=== PATIENT | male | born 1960 | race Caucasian/White ===

== ENCOUNTER 2016-10-21 23:19 | Inpatient (IN) ==
[2016-10-21 23:40] LABS: MANUAL DIFF NEEDED? NO
[2016-10-21 23:43] LABS: BASO% 2.1 % (0.0-0.8); HEMATOCRIT 30.4 % (42.0-52.0); HEMOGLOBIN 10.2 g/dL (14.0-18.0); IMM GRAN# 0.02 X1000 (0.0-0.04); IMM GRAN% 0.8 % (0.0-0.5); LYMPH# 0.95 X1000 (1.2-3.4); LYMPH% 39.3 % (20.5-51.1); MCH 28.7 PG (27-31); MCHC 33.6 g/dL (33-37); MCV 85.4 FL (81-99); MONO# 0.29 X1000 (0.11-0.59); MPV 10.7 FL (7.4-10.4); NEUT% 45.8 % (42.2-75.2); PLT 83 X1000 (130-400); RBC 3.56 XMIL (4.7-6.1)
[2016-10-21 23:51] LABS: INR 1.15; PROTIME 12.2 Seconds (9.2-11.7); PTT 35.7 Seconds (22.0-36.0)
[2016-10-22 00:06] LABS: ALLEN TEST YES; BE 4.8 mmoll (-3.0-3.0); BLOOD TYPE ARTERIAL; DRAW SITE R RADIAL; METHB 0.3 % (0.0-1.5); O2(CT) 13.5 mL/dL (15.0-23.0); PCO2(98.6) 22 mmHg (35-45); PO2(98.6) 156 mmHg (60-100); SAMPLE BLOOD; SAO2 99.5 % (95.0-100.0); THB 9.6 g/dL (11.5-17.4)
[2016-10-22 00:08] LABS: MODALITY CANNULA; pH(98.6) 7.66 (7.35-7.45)
[2016-10-22 00:12] LABS: AGAP 21; ALBUMIN 2.7 g/dL (3.5-5.0); ALKALINE PHOSPHATASE 218 U/L (32-122); BUN 19 mg/dL (8-22); CALCIUM 7.8 mg/dL (8.8-10.2); CHLORIDE 83 mmol/L (98-107); COSMO 268; GOT 153 U/L (10-34); GPT 83 U/L (10-44); POTASSIUM 4.1 mmol/L (3.5-5.1); SODIUM 128 mmol/L (136-145); TCO2 24 mmol/L (25-35); TOTAL BILIRUBIN 1.17 mg/dL (0.20-1.00); TOTAL PROTEIN 5.8 g/dL (6.3-8.3)
[2016-10-22] MEDS ORDERED: NS 1,000 ML IV ONE ×2 (00:17→03:23)
[2016-10-22] MEDS ORDERED: LR 1,000 ML IV ONE ×2 (00:19→00:28)
[2016-10-22] MEDS ORDERED: LEVAQUIN 750 MG/D5W 750 MG/150 ML IVPB IV ONE (00:21)
[2016-10-22] MEDS ORDERED: ZOSYN 3.375 GM/NS 3.375 GM/50 ML IVPB IV ONE (00:22)
[2016-10-22] MEDS ORDERED: VANCOMYCIN 1 GM/NS 1 GM/250 ML IVPB IV ONE (00:23)
[2016-10-22] MEDS ORDERED: LR 2,500 ML IV ONE (00:28)
[2016-10-22 00:52] LABS: CK PROFILE 100 U/L (24-204)
[2016-10-22 01:17] LABS: URINE CULTURE NEEDED? NO; URINE SOURCE CLEAN CATCH
[2016-10-22 01:21] LABS: BILIRUBIN URINE SMALL (NEGATIVE); BLOOD URINE MODERATE (NEGATIVE); COLOR YELLOW; GLUCOSE URINE NEGATIVE (NEGATIVE); LEUKOCYTES URINE NEGATIVE (NEGATIVE); NITRITE URINE NEGATIVE (NEGATIVE); PROTEIN URINE 200 mg/dL (NEGATIVE); TURBIDITY URINE CLEAR (CLEAR); UROBILINOGEN URINE 4 mg/dL (NORMAL)
[2016-10-22 01:25] LABS: UR EPITHELIAL CELLS <10 /HPF (<10); URINE BACTERIA NEGATIVE /HPF; URINE MICRO REVIEW NEEDED? YES; URINE RBC 20-40 /HPF (<10); URINE WBC <10 /HPF (<10)
[2016-10-22 01:33] LABS: URINE CASTS GRANULAR PRESENT
--- NOTE | 2016-10-22 01:33 | PROVIDER DOCUMENTATION ---
This chart was entered by Reta Bentley Scribe, acting as scribe for Azael Amaya MD. HPI-General Adult - General Chief Complaint: Altered Mental Status Stated Complaint: AMS Time Seen by Provider: 10/21/16 23:23 Source: family, EMS Allergies/Adverse Reactions: Patient Allergies Allergy/AdvReac Type Severity Reaction Status Date / Time No Known Allergies Allergy Verified 10/21/16 23:31 Home Medications: Home Medication List Medication Instructions Recorded Confirmed Last Taken Type Baclofen 10 mg PO TID 11/29/13 10/21/16 03/09/16 14:00 History Omeprazole [Prilosec] 40 mg PO DAILY 03/09/16 10/21/16 03/09/16 09:00 History Gabapentin 100 - 200 mg PO QAM 10/21/16 10/21/16 Unknown History Gabapentin 400 mg PO HS 10/21/16 10/21/16 Unknown History Ibuprofen 600 mg PO TID 10/21/16 10/21/16 Unknown History Trazodone [Desyrel] 100 mg PO QHS 10/21/16 10/21/16 Unknown History - History of Present Illness -Gen Adult Nature of Presenting Problems: 56 Y/O M presents to ED with AMS. Pt was brought in by EMS, states that pt was last seen normal around 4pm when she got home from work and has been going down hill since then. EMS states that the call came in that pt was lethargic, prefuse sweating 90/60 BP, and then 78/60 BP. Not unconscious, disoriented. EMS states in transport states normal states. states pt has been dealing with cough/ congestion with SOB for a few days, and has been having hematuria and has been seeing a kidney specialist for the past 3 weeks. Location of Pain/Injury: reports: generalized Pain Radiation: reports: no radiation Quality of Pain: reports: none Severity: reports: moderate Onset/Duration: reports: this afternoon Timing: reports: still present Context/Activities at Onset: reports: none Associated Symptoms: reports: diaphoresis, genitourinary problems, sinus congestion/drainage, shortness of breath Similar Symptoms Previously?: No Recently seen or treated by another doctor?: Yes Review of Systems - Adult - REVIEW OF SYSTEMS - ADULT Constitutional: reports: other (lethargic). denies: chills, fever Eyes: reports: no symptoms reported Ears, Nose, Mouth & Throat: reports: sinus problem Cardiovascular: reports: no symptoms reported Respiratory: reports: no symptoms reported Gastrointestinal: denies: abdominal pain, diarrhea, nausea, vomiting Genitourinary: reports: hematuria Musculoskeletal: reports: no symptoms reported Integumentary: reports: no symptoms reported Neurological: reports: no symptoms reported Psychiatric: reports: other (altered mental status). denies: anti-depressant use, alcohol/drug dependence, depression, emotional problems, panic attacks Endocrine: reports: excessive sweating Hematologic/Lymphatic: reports: no symptoms reported Allergic/Immunologic: reports: no symptoms reported All Other Systems: Reviewed and Negative Past History - Adult - PAST MEDICAL HISTORY-ADULT Review of Records: reports: Old Records Reviewed, Nursing Assessment Review, Medications Reviewed, Social history reviewed & non-contributory. Major Childhood Illnesses: reports: denies history Cardiovascular: reports: HTN, hyperlipidemia Respiratory: reports: denies history Gastrointestinal: reports: denies history Obstetrical/Gynecological: reports: denies history Genitourinary: reports: denies history Musculoskeletal: reports: chronic pain (knee and right shoulder, and back pain) Neurological: reports: denies history Psychiatric: reports: anxiety Endocrine/Immune: reports: denies history Other Conditions: reports: denies history - PRIOR SURGERIES/PROCEDURES Surgical/Procedure History: reports: back/neck - PRIOR HOSPITALIZATIONS Prior Hospitalizations: reports: none - IMMUNIZATION STATUS Childhood Immunizations: UTD Flu Vaccine: See Nurse Assessment - FAMILY HISTORY Family History: reviewed, not pertinent - SOCIAL HISTORY Smoking: quit greater than 1 year Alcohol Use Frequency: occasionally Living Situation: family Physical Exam-General - CONSTITUTIONAL General Appearance: alert, mild distress, obese, lethargic - EYES Eyes: PERRL/EOMI, pink conjunctivae, fundi clear, no AV nicking - HEAD, EARS, NOSE, MOUTH & THROAT HENMT: moist mucous membranes, TMs normal, pharynx normal - NECK Neck: non-tender, full range of motion, supple - RESPIRATORY Respiratory: chest non-tender, lungs clear, normal breath sounds - CARDIOVASCULAR Cardiovascular: tachycardia - GASTROINTESTINAL (ABDOMEN) Abdominal Exam: normal bowel sounds, non tender, soft - LYMPHATIC Lymphatic: no adenopathy - SKIN Integumentary: blanching, diaphoresis Progress - PLAN OF CARE/RESULTS Progress/Plan/Lab Results: Orders Category Date Time Status CHEST-PORTABLE [RAD] Stat Exams 10/21/16 23:22 Ordered ABG [RESP] Stat Lab 10/21/16 23:22 Ordered ALCOHOL BLOOD Stat Lab 10/21/16 23:22 Uncollected CBC WITH ELECTRONIC DIFF [HEME] Stat Lab 10/21/16 23:22 Uncollected CK PROFILE [SP CHEM] Stat Lab 10/21/16 23:22 Uncollected COMPREHENSIVE METABOLIC PANEL [CHEM] Stat Lab 10/21/16 23:22 Uncollected EKG [EKG] Stat Ther 10/21/16 23:22 Ordered Result Diagrams: 10/21/16 23:21 10/21/16 23:21 - EKG 1 Time of EKG reading by physician:: 23:18 EKG Read and Signed by:: Azael Amaya EKG Interpretation (*Must complete 3 of following elements*): Abnormal Rate: 146 Rhythm: Sinus Tachycardia Comments: Otherwise normal ECG - CT/MRI 1 CT Study: Head Impression: Normal CT Results: NAD. mild right maxillary sinusitis - CONSULTS/PCP/HOSPITALIST Notification #1 *Consult/PCP/Hospitalist*: Dr. Klein Time Discussed: 00:31 Reason/Comments: Admittance Consult Disposition: Admit (Admit Accepted) Departure - Departure Time of Disposition Decision: 01:33 DIAGNOSIS: Pneumonia Sepsis Qualifiers: Sepsis type: sepsis due to unspecified organism Qualified Code(s): A41.9 - Sepsis, unspecified organism Disposition: ADMITTED INPATIENT 09 Certified Medical Emergency: Emergent Condition: Serious This chart was documented by the indicated scribe, (Reta Bentley Scribe) and accurately reflects the services I performed and decisions made by , Azael Amaya MD, as attested by the provider's signature.
[2016-10-22 01:38] LABS: UR AMPHETAMINES QUAL NONE DETECTED (NONE DETECT); UR BARBITUATES QUAL NONE DETECTED (NONE DETECT); UR BENZODIAZEPIN QUAL NONE DETECTED (NONE DETECT); UR CANNABINOIDS QUAL NONE DETECTED (NONE DETECT); UR COCAINE QUAL NONE DETECTED (NONE DETECT); UR METHADONE QUAL NONE DETECTED (NONE DETECT); UR OPIATES QUAL NONE DETECTED (NONE DETECT); UR OXYCODONE QUAL NONE DETECTED (NONE DETECT); UR PCP QUAL NONE DETECTED (NONE DETECT)
--- NOTE | 2016-10-22 02:59 | HISTORY AND PHYSICAL ---
PRIMARY CARE PHYSICIAN: Dr. Jules Sheikh. CHIEF COMPLAINT: Altered mental status. HISTORY OF PRESENTING ILLNESS: A 56-year-old male with a history of chronic low back pain who was brought to the emergency department due to patient having fevers and chills, and being confused for the past day or so. As per his , he was not acting normal. This occurred all of a sudden within the past day or so. The patient, at the time of my exam, was mildly confused and was not oriented to time or place. His chest x-ray was read by ER physician as possible infiltrates, suspicious for pneumonia. Subsequently, he will need hospitalization for further management. At the time of my examination, he had denied, however, having any headache, nausea, vomiting, diarrhea, chest pain, hemoptysis, or weight changes but complained of cough and not feeling well. PAST MEDICAL HISTORY: Chronic low back pain. PAST SURGICAL HISTORY: Back surgery. ALLERGIES: No known drug allergies. CURRENT MEDICATIONS: As listed in [facility]. SOCIAL HISTORY: He is a former smoker. He denies any history of alcohol or illicit drug use. FAMILY HISTORY: No history of coronary disease. REVIEW OF SYSTEMS: Twelve point review of systems listed as in the HPI. Other systems negative. PHYSICAL EXAMINATION: GENERAL: Cooperative, friendly male. He is resting comfortably now. VITAL SIGNS: Temperature 98.8 degrees, pulse 146, respirations 40, blood pressure 117/64. He is saturating 95%. HEENT: Atraumatic, normocephalic. Extraocular movements intact. NECK: No masses. CHEST: Bibasilar rales. CARDIOVASCULAR: Tachycardic. ABDOMEN: Soft, obese. Positive bowel sounds. EXTREMITIES: Trace edema. NEUROLOGIC: He is awake, alert, oriented x1 only now. : No bladder distention. SKIN: Warm. LABORATORIES AND STUDIES: Sodium 128, potassium 4.1, chloride 83, CO2 is 24, BUN is 19, creatinine is 1.1, glucose is 259. Plasma lactate is 4. WBCs 2.42, hemoglobin 10.2, hematocrit 30.4, platelets are 83,000. ASSESSMENT: A 56-year-old male with a history of chronic low back pain who had presented to the emergency department with a 1-day history of having confusion. Apparently, he was running fevers and chills for the past day or so. His x-ray was read by the emergency room physician as suspicious for pneumonia. Due to his presenting symptoms, he will need hospitalization for further management. 1. Altered mental status. 2. Suspected sepsis. 3. Probable pneumonia. 4. Hyponatremia. 5. Hyperglycemia. PLAN: 1. We will admit patient to the medical floor with telemetry. 2. We will continue with neurology checks. 3. We will check blood cultures and start patient on IV antibiotics. 4. We will continue with IV fluids. 5. We will monitor electrolytes. 6. We will check a hemoglobin A1c and monitor blood glucose. 7. Put patient on DVT prophylaxis with SCDs. 8. We will continue to follow and reassess. cc: Christian Klein MD
[2016-10-22] MEDS: DUONEB (A & A) INH SCH ×6 (03:31→23:03)
[2016-10-22] MEDS: TYLENOL PO PRN ×3 (05:37→22:16)
[2016-10-22] MEDS: ZOSYN 3.375 GM/NS 3.375 GM/50 ML IVPB IV SCH ×3 (05:37→17:33)
--- NOTE | 2016-10-22 05:57 | HISTORY AND PHYSICAL ---
ADDENDUM: As per sepsis protocol, the patient was re-evaluated after having IV fluid resuscitation. Patient has good tissue perfusion. His skin is moist and warm. He is making good urine output and his mental status has improved. cc: Christian Klein MD
[2016-10-22 06:57] LABS: HEMOGLOBIN A1C 6.6 % (4.8-6.0)
--- NOTE | 2016-10-22 07:28 | Diag Imaging Result Document ---
PROCEDURE NAME: HEAD W/O CONTRAST - 10/21/[address]: A CT dose reduction protocol was used. COMPARISON: 03/09/2016 FINDINGS: The ventricles and sulci are normal in size and contour. No intracranial mass or hemorrhage. The skull is intact. There is mild right maxillary sinusitis. IMPRESSION: Sinusitis. No acute disease. MTDD
--- NOTE | 2016-10-22 07:39 | Diag Imaging Result Document ---
PROCEDURE NAME: CHEST-PORTABLE - 10/21/2016 PORTABLE CHEST: COMPARISON: Compared to 03/10/2016. FINDINGS: The lungs are well expanded. The heart is not enlarged. The vessels are not distended. No pneumonia. No pleural effusions identified. IMPRESSION: Negative chest.
--- NOTE | 2016-10-22 09:43 | PROGRESS NOTE ---
DATE: 10/22/2016 SUBJECTIVE: The patient presented early this morning. stated he was confused, altered mental status. His primary care doctor is Dr. Jules Sheikh. He is a 56-year-old with a history of chronic lower back pain, brought to the emergency room department after having fever and chills, being confused for the past day or so. According to , he was not acting normal. Was not oriented to place or person. ER read the x-ray as possible infiltrates suspicious for pneumonia. Past medical history really consistent for chronic lower back pain. He is a former smoker. Denies alcohol or illicit drug use so really admitted for confusion, questionable infiltrate, questionable pneumonia. This morning, still a little diaphoretic. PHYSICAL EXAMINATION: Vital Signs: Temperature 98.7 degrees, pulse 120, respirations 22, blood pressure 96/48. HEENT: The pupils are equal and round. Lungs: Are clear in all lung shah. Cardiovascular Examination: Regular rhythm and rate without murmur or S3. Abdomen: Soft. Skin: Is warm and dry. Is and Os: Urine output about 2000 mL. LAB: Reviewed from this morning. White count 2420, hematocrit 30, platelet count 83,000. Blood sugars 145, 143. Plasma lactate was 4. I am going to check a hemoglobin A1c. ASSESSMENT AND PLAN: 1. History of lower back pain. He presented to the emergency department with a 1-day history of confusion, running fever and chills for the past day or so. Questionable infiltrate. 2. Altered mental status. 3. Hyponatremia. 4. Hyperglycemia. I do not know if he has ever been diagnosed with diabetes. 5. He had a head CT done without contrast. There was some sinusitis but no acute disease. Chest x-ray this morning, negative chest. A urine drug screen was negative for opiates, oxycodone, methadone, barbiturates, phencyclidine, amphetamines, benzodiazepines, cocaine, cannabinoids, and ethanol. 6. Review of orders. I do not see anything to change. He got vancomycin and Levaquin and piperacillin. I think we can wait on cultures. I am not sure that the Levaquin is adding anything to that was discontinued. He is on Zosyn right now. He got 1 dose of vancomycin. His blood pressure is a little marginal. Continue fluids. He is getting lactate Ringer. He is getting normal saline now at 125 mL an hour. Continue this for now. cc: Denilson Steven MD
[2016-10-23] MEDS: ZOSYN 3.375 GM/NS 3.375 GM/50 ML IVPB IV SCH ×4 (00:35→17:01)
[2016-10-23] MEDS: DUONEB (A & A) INH SCH ×6 (02:56→23:21)
[2016-10-23] MEDS: TYLENOL PO PRN ×3 (05:17→21:45)
[2016-10-23 05:52] LABS: MANUAL DIFF NEEDED? NO
[2016-10-23 06:05] LABS: HEMATOCRIT 24.3 % (42.0-52.0); HEMOGLOBIN 8.2 g/dL (14.0-18.0); IMM GRAN# 0.02 X1000 (0.0-0.04); IMM GRAN% 1.7 % (0.0-0.5); LYMPH# 0.26 X1000 (1.2-3.4); LYMPH% 22.4 % (20.5-51.1); MCH 28.6 PG (27-31); MCHC 33.7 g/dL (33-37); MCV 84.7 FL (81-99); MONO# 0.08 X1000 (0.11-0.59); MONO% 6.9 % (1.7-9.3); MPV 10.6 FL (7.4-10.4); PLT 68 X1000 (130-400); RBC 2.87 XMIL (4.7-6.1)
[2016-10-23 06:19] LABS: AGAP 14; BUN 9 mg/dL (8-22); CALCIUM 7.5 mg/dL (8.8-10.2); CHLORIDE 86 mmol/L (98-107); COSMO 261; POTASSIUM 3.1 mmol/L (3.5-5.1); SODIUM 126 mmol/L (136-145); TCO2 26 mmol/L (25-35)
--- NOTE | 2016-10-23 13:52 | PROGRESS NOTE ---
DATE: 10/23/2016 SUBJECTIVE: He is awake. He is eating a little bit. His blood pressure looks good. OBJECTIVE: Vital signs: Temperature 97.7 degrees, pulse 140, respirations 24, and blood pressure 155/75. HEENT: Pupils are equal, round. Lungs: Clear in all lung shah. Cardiovascular: Regular rhythm and rate without murmur or S3. Intake and output: Good urine output. LAB: Reviewed from today. White count 1,160, hematocrit 24, platelet count 68,000. Sodium 126, potassium 3.1, chloride 86, bicarb 26, BUN 9, creatinine 0.7. Blood sugar is 189, 188, 269, 253. Calcium was 7.4. ASSESSMENT AND PLAN: 1. History of lower back pain. Presented to the emergency with a 1-day history of confusion. 2. Pancytopenia. I am not sure what the etiology is. I am going to check a CBC again tomorrow. 3. Altered mental status. 4. Hyponatremia which is 126. We are going to continue give him fluids. We are going to see if we can supplement the potassium. I will check urine studies to see if this is inappropriate ADH but I think this is probably hypovolemic. 5. He had a CT of his head without contrast. There is some sinusitis. Chest x-ray was really negative. Drug screen was negative for opiates, really everything. He is getting vancomycin, Levaquin, and piperacillin. Waiting on cultures. The question is his pancytopenia. I am going to supplement some potassium and continue his IV fluids. I want him to get normal saline and will run it at 100 mL an hour. Continue his Zosyn. He is off of everything else at this point. cc: Denilson Steven MD
--- NOTE | 2016-10-23 14:30 | Diag Imaging Result Document ---
PROCEDURE NAME: CHEST-PORTABLE - 10/23/2016 PORTABLE CHEST X-RAY: COMPARISON: 10/21/2016. FINDINGS: Heart size remains borderline. No focal infiltrates, pneumothorax, or pleural effusion. IMPRESSION: No acute disease or change from prior.
[2016-10-24] MEDS: ZOSYN 3.375 GM/NS 3.375 GM/50 ML IVPB IV SCH ×5 (00:05→19:35)
[2016-10-24] MEDS: DUONEB (A & A) INH SCH ×6 (02:55→23:27)
[2016-10-24] MEDS: TYLENOL PO PRN (04:39)
[2016-10-24 05:38] LABS: MANUAL DIFF NEEDED? NO
[2016-10-24 05:46] LABS: BASO% 0.8 % (0.0-0.8); HEMOGLOBIN 8.7 g/dL (14.0-18.0); IMM GRAN# 0.02 X1000 (0.0-0.04); IMM GRAN% 1.6 % (0.0-0.5); LYMPH# 0.21 X1000 (1.2-3.4); LYMPH% 16.8 % (20.5-51.1); MCH 28.5 PG (27-31); MCHC 33.5 g/dL (33-37); MCV 85.2 FL (81-99); MONO# 0.07 X1000 (0.11-0.59); MONO% 5.6 % (1.7-9.3); MPV 11.8 FL (7.4-10.4); NEUT% 75.2 % (42.2-75.2); PLT 49 X1000 (130-400); RBC 3.05 XMIL (4.7-6.1)
[2016-10-24 06:13] LABS: AGAP 14; ALBUMIN 2.3 g/dL (3.5-5.0); ALKALINE PHOSPHATASE 150 U/L (32-122); BUN 10 mg/dL (8-22); CALCIUM 7.6 mg/dL (8.8-10.2); CHLORIDE 87 mmol/L (98-107); COSMO 262; GOT 187 U/L (10-34); GPT 81 U/L (10-44); MAGNESIUM 1.7 mg/dL (1.5-2.7); SODIUM 130 mmol/L (136-145); TCO2 29 mmol/L (25-35); TOTAL BILIRUBIN 1.27 mg/dL (0.20-1.00); TOTAL PROTEIN 5.4 g/dL (6.3-8.3)
[2016-10-24 06:23] LABS: FREE T4 1.01 ng/dL (0.93-1.70)
--- NOTE | 2016-10-24 09:51 | PROGRESS NOTE ---
DATE: 10/24/2016 SUBJECTIVE: He is more awake. He does seem to feel a little better, a little stronger, breathing comfortably. OBJECTIVE: Vital Signs: Temp 100.0 degrees, pulse 123, respirations 18, blood pressure 137/74. HEENT: Pupils are equal, round. Neck: No distended neck veins. Lungs: Clear in all lung shah. Cardiovascular exam: Regular rhythm and rate without murmur or S3. : Good urine output, well over 4 L output. LABS AND X-RAYS: White count 1250, hematocrit 26, platelet count 49,000. Chemistries: Sodium 130, potassium 4.0, chloride 87, BUN 10, creatinine 0.6. Blood sugars 140, 135, 130. B 12 was greater than 2000. T4 was 1.01. Chest x-ray from yesterday: No acute disease. ASSESSMENT AND PLAN: 1. History of lower back pain. He apparently is off of the pain medicine. He does have a history of substance opiate dependence, but otherwise he has been off since July. He did present with a day of confusion; this is better. His mind is clearing. Cognitive function improved. 2. Pancytopenia. Not sure what is going on there. I am going to ask hematology to look. 3. Altered mental status as above. 4. Hyponatremia, which is improving with some intravenous fluids. He presented with infection and suspected sepsis, not sure of the etiology, although he did have some sediment in the urine. No growth on blood cultures times 2 from the twelfth, and influenza A and B were negative. Review of his orders: Presently he is still on Zosyn 3.375 mg IV q. 6 hours. He is really not on any other medications, except his breathing treatment. I am going to ask hematology to evaluate for his pancytopenia. cc: Denilson Steven MD
[2016-10-24 12:06] LABS: BANDS 14 % (0-1); LYMPHS 14 % (21-51); MONO 6 % (1-9)
--- NOTE | 2016-10-24 12:50 | CONSULTATION ---
DATE OF CONSULTATION: 10/24/2016 REASON FOR CONSULT: The patient has pancytopenia. HISTORY OF PRESENT ILLNESS: Patient with chronic back pain. He came to the emergency room after having some chills and fever for 24-48 hours along with altered mental status. His labs were checked. His white count on admission on 10/21 was 2.42, hemoglobin 10.2, hematocrit 30.4, and platelet count revealed 83,008. Chest a-ray showed no acute process. A CT of the head showed sinusitis with no other acute processes. He did have some hyponatremia. Sodium was 138. He had some elevated LFTs. He did have some fever, 100.2. Blood cultures were obtained which were negative. They checked for influenza A, which was negative. Patient's T-max since he has been here is 101.4. They gave him vancomycin and Levaquin and he is currently on Zosyn. His labs now today are white count 1.25 with granulocytes of 900. Hemoglobin is 8.7, hematocrit 26 with a platelet count of 49,000. His sodium is mildly improved at 132, so we have been asked to evaluate. The patient continues to be confused but that is improving some. Repeated chest x-ray yesterday which continues to show no acute process. His blood cultures show no growth at this time. He does have a history of low back pain with a previous opioid dependence butt he has not had any opioids since approximately July. REVIEW OF SYSTEMS: Negative unless indicated in the HPI. ALLERGIES: No known allergies. PAST MEDICAL HISTORY: Chronic low back pain with a history of back surgery. HOME MEDICATIONS: There are none listed. PHYSICAL EXAMINATION: General: This is a male in no acute distress. Vital Signs: Stable. HEENT: Head is normocephalic, atraumatic. Pupils equal, round, reactive. Neck : Trachea is midline. Neck is supple. Cardiovascular: S1, S2 audible to auscultation with no heaves, lifts, thrills, or murmurs. Pulmonary: Breath sounds clear to auscultation with normal respiratory effort. Abdomen: Soft, nontender. Positive bowel sounds in all 4 quadrants. Extremities: No edema. Musculoskeletal: Patient moves all extremities. Neurologic: Patient is awake, follows commands. Skin: No petechiae. No rashes. LABORATORY STUDIES AND DIAGNOSTIC DATA: WBC is 1.25, hemoglobin 8.7, hematocrit 26, platelet count 49,000. Sodium is 130, potassium 4.0. BUN is 10 and creatinine 0.6. Total bilirubin is 1.27. AST is 187, ALT is 81, and alkaline phosphatase is 150. Chest x-ray showed no acute process. ASSESSMENT AND PLAN: 1. Pancytopenia with worsening white count, and platelets. Etiology unclear. Labd ordered. Suspect sepsis. Patient is currently on Zosyn which can cause some thrombocytopenia but the patient came in with the thrombocytopenia. We will check hepatitis, HIV, iron indices, LDH and review blood smear along with checking an abdomen ultrasound and make further recommendations. We would recommend transfusing on a p.r.n. basis. It could be multifactorial we will follow along with you. Thank you for this consult. 2. Altered mental status. Again it is hard to say what is going on with this patient. His CT of the head only revealed some sinusitis. Primary team is looking into this. It is improving. He did have some hyponatremia that is slowly improving. 3. Hyponatremia with some improvement as above. 4. DVT prophylaxis with SCDs. Dictated by MICHELLE Barraza for Uri Perez MD cc: MICHELLE Barraza MD [facility]
--- NOTE | 2016-10-24 14:34 | Diag Imaging Result Document ---
PROCEDURE NAME: US ABDOMEN-COMPLETE - 10/24/2016 ULTRASOUND ABDOMEN, COMPLETE: COMPARISON: None. FINDINGS: There is splenomegaly. The spleen measures 22 x 21 x 7.9 cm. The liver and gallbladder are normal. Pancreas is obscured by bowel gas. There are bilateral renal cysts measuring about 3-4 cm. No free fluid. Aorta, IVC, and main portal vein are patent. The common bile duct measures 6 mm. IMPRESSION: 1. Splenomegaly. 2. Bilateral renal cysts.
[2016-10-25] MEDS: ZOSYN 3.375 GM/NS 3.375 GM/50 ML IVPB IV SCH ×3 (01:37→18:40)
--- NOTE | 2016-10-25 01:58 | Diag Imaging Result Document ---
PROCEDURE NAME: ABD/PELVIS/PULM ARTERIES - 10/24/2016 STUDY: CT chest, abdomen and pelvis with intravenous contrast. Chest: The heart is mildly enlarged. There is a calcified granuloma in the right base. No effusions. No thoracic aortic aneurysm or dissection. There are calcified mediastinal lymph nodes. Normal opacification of the pulmonary arteries and their proximal main branches. Poor opacification of the distal branches apparently due to motion and timing. No consolidation. No bronchiectasis. IMPRESSION: 1. There is evidence of a prior granulomatous infection, but no acute pneumonia. 2. Mild cardiomegaly. 3. No definite pulmonary emboli. Abdomen and pelvis with intravenous contrast: There is fatty infiltration of the liver. The spleen is enlarged measuring 17.7 cm in length. Normal pancreas, gallbladder, and adrenal glands. There are bilateral renal cysts. The largest arises from the anterior left kidney measuring 5.6 cm. No renal stones. No hydronephrosis. Moderate atherosclerosis. No aneurysmal dilatation to the aorta. There are small paraaortic lymph nodes. No bowel obstruction. No inflammation about the cecum. No abscess. No free air. The urinary bladder is distended and appears normal. The prostate is not enlarged. Mildly prominent iliac lymph nodes. The largest is on the right measuring 2.1 cm. Mildly prominent inguinal lymph nodes as well. There has been prior surgery to the lower lumbar spine. IMPRESSION: 1. Splenomegaly. 2. Fatty infiltration of the liver. 3. Renal cysts. 4. Moderate prominent atherosclerosis. 5. Mildly prominent lymph nodes. A preliminary report was given at 11:25 p.m.
[2016-10-25] MEDS: DUONEB (A & A) INH SCH ×2 (03:22→07:30)
[2016-10-25 05:44] LABS: MANUAL DIFF NEEDED? NO
[2016-10-25 05:55] LABS: HEMATOCRIT 25.8 % (42.0-52.0); HEMOGLOBIN 8.8 g/dL (14.0-18.0); IMM GRAN# 0.02 X1000 (0.0-0.04); IMM GRAN% 1.5 % (0.0-0.5); LYMPH# 0.19 X1000 (1.2-3.4); MCH 28.6 PG (27-31); MCHC 34.1 g/dL (33-37); MCV 83.8 FL (81-99); MONO% 7.4 % (1.7-9.3); MPV 10.7 FL (7.4-10.4); NEUT% 77.1 % (42.2-75.2); PLT 50 X1000 (130-400); RBC 3.08 XMIL (4.7-6.1); RETIC% 0.41 % (0.8-2.1); RETIC-HE 23.6 PG (28.2-36.6)
[2016-10-25 05:59] LABS: INR 1.14; PROTIME 12.1 Seconds (9.2-11.7); PTT 35.6 Seconds (22.0-36.0)
[2016-10-25 06:20] LABS: AGAP 15; ALBUMIN 2.2 g/dL (3.5-5.0); ALKALINE PHOSPHATASE 151 U/L (32-122); BUN 10 mg/dL (8-22); CALCIUM 7.2 mg/dL (8.8-10.2); CHLORIDE 83 mmol/L (98-107); COSMO 252; GOT 183 U/L (10-34); GPT 74 U/L (10-44); IRON SATURATION 28 %; POTASSIUM 3.3 mmol/L (3.5-5.1); SODIUM 125 mmol/L (136-145); TCO2 27 mmol/L (25-35); TIBC 137 ug/dL; TOTAL BILIRUBIN 1.61 mg/dL (0.20-1.00); TOTAL IRON 39 ug/dL (53-167); TOTAL PROTEIN 4.9 g/dL (6.3-8.3); UNBOUND IRON 98 ug/dL (112-346)
[2016-10-25 06:54] LABS: SED RATE 32 mm/hr (0-15)
--- NOTE | 2016-10-25 11:36 | PROGRESS NOTE ---
DATE: 10/25/2016 SUBJECTIVE: Mr. Benoit is a little stronger. He looks more awake and alert. He says he feels a little short of breath, but it appears he is taking quick, shallow respirations. He can take deep breaths. Lungs: His lungs sound clear in all lung shah. Vital Signs: Afebrile. Cardiovascular: Regular rhythm and rate, without murmur or S3. Abdomen: Soft. Skin: Warm and dry. Vital signs: Temperature 98.4 degrees, pulse has been in the 120s to 130s, respirations 32, blood pressure 143/56. Urine output was over 3 L. LABORATORY: Reviewed from this morning, white count 1360, hematocrit 25, platelet count 50,000. Chemistry: Sodium 125, potassium 3.3, chloride 83, BUN 10, creatinine 0.4, blood sugars 221, 204, 129. Ferritin level was 29,000. Liver functions: Elevated transaminases, AST 183, ALT 74, albumin 2.2. ASSESSMENT AND PLAN: 1. Pancytopenia with worsening white count, platelets. Patient is currently on Zosyn, which can cause some thrombocytopenia. Patient came in with thrombocytopenia. Checking for hepatitis, HIV, iron indices, LDH, review blood smear, will check abdominal ultrasound. 2. Altered mental status, which is improving. 3. Appeared to come in with what appeared to be sepsis, altered mental status, low blood pressure. That is improved. 4. Hyponatremia. Volume status appears to be normal. Suspect he may have some syndrome of inappropriate antidiuretic hormone secretion. REVIEW OF HIS ORDERS: He is on Zosyn now. I do not have any culture data, no growth, so I will discontinue his antibiotic of Zosyn and then see how we do. cc: Denilson Steven MD
[2016-10-25] MEDS ORDERED: VANCOMYCIN IV PER PHARMACY MISC SCH (12:30)
[2016-10-25 12:45] LABS: BLOOD TYPE ARTERIAL; SAMPLE BLOOD
--- NOTE | 2016-10-25 12:52 | PROGRESS NOTE ---
DATE: 10/25/2016 CHIEF COMPLAINT/HISTORY OF PRESENT ILLNESS: Patient is looking comfortable in bed. Nurse reports that he has had on and off change in mental status. At present, he appears alert and oriented. He reports of fever going on for a little while. He cannot quantify it since he has not checked it. He reports of chills and sweats. At present, he is cold, clammy and sweating profusely. He denies any pain. PHYSICAL EXAMINATION: The patient is sweating profusely.Vital Signs: Temperature 98.4 degrees, pulse 130, blood pressure 143/56. Eyes: EOMI. PERRLA. Anicteric. Mucous membranes appear slightly dry. Lymph node survey: Negative. Cardiac Exam: Regular rate and rhythm. Normal S1, S2. Chest: Reveals rhonchi but no crackles. Abdomen: Soft, nontender, without hepatosplenomegaly or masses. It is protuberant. Extremities: No cyanosis, clubbing, or edema. LABORATORY DATA: White count 1.36, hemoglobin 8.8, hematocrit 25.8, MCV 83, platelets 50,000. MPV 10.78 and 31.05. Retic count 0.4. Fibrinogen 375, D-dimer 13.2. BUN 10, creatinine 0.7. Iron 39, TIBC 137%, sat 28. Ferritin 29,006. Bilirubin 1.6. AST 183, ALT 74, alkaline phosphatase 151. LDH 968. B12 greater than 2000. Folate 9.7. TSH 0.24, free T4 1.01. Chest x-ray negative. CT of the abdomen and pelvis revealed splenomegaly measuring about 17 cm with fatty liver. No other findings. ASSESSMENT/PLAN: 1. Pancytopenia: The patient has splenomegaly. This may be the cause for his baseline pancytopenia which was present upon admission. However I do think that due to his recent acute illness he probably has a hypersplenic state and his cytopenias have worsened. I am reassured that over the last day, his cytopenias have stabilized and maybe even trending up. For now, simply continue to watch him. If his ANC trends down consider Neupogen. We will see how his CBC is tomorrow and decide if he requires a bone marrow biopsy on Thursday. 2. Sepsis: I discussed with Dr. Steven. I think he is septic and infected. His ferritin is extremely elevated as an acute phase reactant. LDH is also very elevated. Restart Zosyn and vancomycin at this time. Continue to monitor cultures. 3. Hyperferritinemia: This I believe is acute phase reactant. Iron percent saturation was within normal limits. I do not think this is hemochromatosis. 4. LFT abnormalities: This is also part of his acute infectious process I suspect. Continue to monitor closely. 5. Change in mental status: Per Dr. Steven. cc: Uri Perez MD
[2016-10-25 12:59] LABS: ALLEN TEST YES; DRAW SITE L RADIAL; METHB 1.9 % (0.0-1.5); MODALITY CANNULA; O2(CT) 12.3 mL/dL (15.0-23.0); PCO2(98.6) 34 mmHg (35-45); PO2(98.6) 65 mmHg (60-100); SAO2 96.4 % (95.0-100.0); THB 9.3 g/dL (11.5-17.4); pH(98.6) 7.55 (7.35-7.45)
[2016-10-25] MEDS: TYLENOL PO PRN ×2 (13:58→20:26)
[2016-10-25] MEDS: VANCOMYCIN 2,000 MG in NS 500 ML IV SCH (13:58)
[2016-10-25] MEDS ORDERED: XOPENEX HFA INH PRN (14:03)
[2016-10-25] MEDS: XOPENEX NEB INH PRN ×3 (15:26→23:22)
[2016-10-25] MEDS: ADVAIR 250/50 DISKUS INH SCH (19:45)
[2016-10-26] MEDS: ZOSYN 3.375 GM/NS 3.375 GM/50 ML IVPB IV SCH ×5 (00:29→23:58)
[2016-10-26] MEDS: VANCOMYCIN 2,000 MG in NS 500 ML IV SCH (01:05)
[2016-10-26] MEDS: TYLENOL PO PRN ×4 (03:53→23:58)
[2016-10-26] MEDS: XOPENEX NEB INH PRN ×5 (03:53→19:24)
[2016-10-26 05:50] LABS: MANUAL DIFF NEEDED? NO
[2016-10-26 05:55] LABS: HEMATOCRIT 22.8 % (42.0-52.0); HEMOGLOBIN 7.7 g/dL (14.0-18.0); LYMPH# 0.15 X1000 (1.2-3.4); LYMPH% 11.3 % (20.5-51.1); MCH 28.3 PG (27-31); MCHC 33.8 g/dL (33-37); MCV 83.8 FL (81-99); MONO# 0.09 X1000 (0.11-0.59); MONO% 6.8 % (1.7-9.3); NEUT% 81.9 % (42.2-75.2); PLT 61 X1000 (130-400); RBC 2.72 XMIL (4.7-6.1)
[2016-10-26 06:23] LABS: ALBUMIN 2.2 g/dL (3.5-5.0); CALCIUM 7.3 mg/dL (8.8-10.2); POTASSIUM 3.3 mmol/L (3.5-5.1); TOTAL BILIRUBIN 1.8 mg/dL (0.20-1.00); TOTAL PROTEIN 5.1 g/dL (6.3-8.3)
[2016-10-26] MEDS: ADVAIR 250/50 DISKUS INH SCH ×2 (07:45→19:23)
--- NOTE | 2016-10-26 15:06 | PROGRESS NOTE ---
DATE: 10/26/2016 SUBJECTIVE: Mr. Benoit states he feels about the same. He is still pretty weak and puny. Does not have much appetite. Not eating much. OBJECTIVE: Vital signs: He had a temp of 103 degrees yesterday and temp a 100.6 degrees this morning. His pulse is 117, respirations 18, blood pressure 118/59. Lungs: Clear in all lung shah. He feels a little short of breath. Blood gases suggest hyperventilation. Cardiovascular: Regular rhythm and rate without murmur or S3. Mild sinus tachycardia. Abdomen: Soft. He has a palpable splenomegaly. Skin: Warm and dry. Intake and output: His urine output is 2000 mL. LABS: From this morning, white count is still low 1,330, hematocrit 22, platelet count 61,000, MCV is 83. Sodium 128, potassium 3.3, chloride 87, bicarb 27, BUN is 21, and creatinine is 1.6. Blood sugars 168, 161, 145 204. Total bilirubin 1.8, AST 212, ALT 75, alkaline phosphatase 147. ASSESSMENT AND PLAN: 1. Pancytopenia. Patient with splenomegaly which was present upon admission and this may be the cause of the pancytopenia which was present on admission. I do not feel it is due to his recent illness. Probably hypersplenic state and his cytopenias have worsened. Continue to watch his counts. We have some studies pending. If his agranular count trends down consider Neupogen. Probably will need a bone marrow biopsy. 2. Sepsis. Not sure what the infection is from, but I do think he is probably immunocompromised with this splenomegaly and hyponatremia. Continue present antibiotics. LDH is very elevated. We have him on Zosyn and vancomycin. 3. Hyperferritinemia. I believe this is an acute phase reactant but very impressive at 20,000. 4. LFT abnormalities. This could be part of an acute infectious process. Continue present regimen. cc: Denilson Steven MD
[2016-10-27] MEDS ORDERED: VANCOMYCIN 2,000 MG in NS 500 ML IV SCH (02:00)
[2016-10-27 05:35] LABS: MANUAL DIFF NEEDED? NO
[2016-10-27 05:49] LABS: HEMATOCRIT 22.4 % (42.0-52.0); HEMOGLOBIN 7.5 g/dL (14.0-18.0); IMM GRAN# 0.02 X1000 (0.0-0.04); IMM GRAN% 1.5 % (0.0-0.5); LYMPH# 0.19 X1000 (1.2-3.4); LYMPH% 14.2 % (20.5-51.1); MCH 28.2 PG (27-31); MCHC 33.5 g/dL (33-37); MCV 84.2 FL (81-99); MONO# 0.07 X1000 (0.11-0.59); MONO% 5.2 % (1.7-9.3); MPV 11.4 FL (7.4-10.4); NEUT% 79.1 % (42.2-75.2); PLT 66 X1000 (130-400); RBC 2.66 XMIL (4.7-6.1)
[2016-10-27 06:04] LABS: ALBUMIN 2.3 g/dL (3.5-5.0); CALCIUM 7.2 mg/dL (8.8-10.2); POTASSIUM 3.4 mmol/L (3.5-5.1); TOTAL BILIRUBIN 1.53 mg/dL (0.20-1.00); TOTAL PROTEIN 4.5 g/dL (6.3-8.3)
[2016-10-27] MEDS: ZOSYN 3.375 GM/NS 3.375 GM/50 ML IVPB IV SCH (06:19)
[2016-10-27 07:27] LABS: INR 1.12; PROTIME 11.8 Seconds (9.2-11.7)
[2016-10-27] MEDS: ADVAIR 250/50 DISKUS INH SCH ×2 (07:55→19:33)
[2016-10-27] MEDS: XOPENEX NEB INH PRN (07:55)
[2016-10-27] MEDS: NS 1,000 ML IV SCH ×2 (08:00→18:48)
[2016-10-27] MEDS: TYLENOL PO PRN (08:32)
[2016-10-27 14:04] LABS: HEPATITIS PROFILE ACUTE SEE COMMENTS; HIV ANTIBODY SCREEN SEE COMMENTS
--- NOTE | 2016-10-27 14:05 | PROGRESS NOTE ---
DATE: 10/27/2016 SUBJECTIVE: Mr. Benoit does feel a little better. He got a little bit of an appetite. Decided to postpone his bone marrow until tomorrow. White counts look like they may be slightly improving. Clinically he looked like he feels better. PHYSICAL EXAMINATION: Vital signs: Pulse was 117 respirations 20, blood pressure 123/70, temp was 100.6 degrees. HEENT: Pupils are equal, round. Neck: CVP less than 6 cm. Lungs: Clear in all lung shah. Cardiovascular: Regular rate without murmur or S3. Intake and output: Urine output was 2500 mL. LABORATORY: Blood sugars 200, 150. Lab today: White count 1,340, hematocrit was 22, hemoglobin 7.5, platelet count 66,000. Chemistries: Sodium 132, potassium 3.4, chloride 88, bicarb 28, BUN 28, creatinine 2.5. Liver functions are still a little elevated; AST 183, ALT 73, alkaline phosphatase 154. ASSESSMENT AND PLAN: 1. Pancytopenia with splenomegaly. Plan on doing a bone marrow. His would like to know. So I will postpone that until tomorrow. Clinically looks like he feels better. 2. Sepsis, infection unknown etiology. Continue present antibiotics. 3. Hyperferritinemia which we believe is an acute phase reactant. 4. Liver functions are slightly elevated. Continue to follow that process as well. REVIEW OF CURRENT MEDICATIONS: I do not see any changes. On vancomycin and Zosyn. cc: Denilson Steven MD
[2016-10-27] MEDS: ZOSYN 2.25 GM/NS 2.25 GM/50 ML IVPB IV SCH ×2 (15:33→21:44)
[2016-10-27 16:19] LABS: URINE SOURCE CLEAN CATCH
[2016-10-27 16:28] LABS: BILIRUBIN URINE NEGATIVE (NEGATIVE); BLOOD URINE MODERATE (NEGATIVE); COLOR YELLOW; GLUCOSE URINE NEGATIVE (NEGATIVE); LEUKOCYTES URINE NEGATIVE (NEGATIVE); NITRITE URINE NEGATIVE (NEGATIVE); PROTEIN URINE 100 mg/dL (NEGATIVE); SP GRAVITY URINE 1.016; TURBIDITY URINE HAZY (CLEAR); URINE MICRO REVIEW NEEDED? YES; UROBILINOGEN URINE 2 mg/dL (NORMAL)
[2016-10-27 16:30] LABS: UR EPITHELIAL CELLS <10 /HPF (<10); URINE BACTERIA NEGATIVE /HPF; URINE WBC <10 /HPF (<10)
[2016-10-27 16:36] LABS: URINE CASTS GRANULAR PRESENT
[2016-10-27 16:38] LABS: UR CREAT RANDOM 69.3 mg/dL (14-26); UR PROT RANDOM 80.8 mg/dL
--- NOTE | 2016-10-27 16:54 | CONSULTATION ---
DATE OF CONSULTATION: 10/27/2016 REASON FOR ADMISSION: Altered mental status with cough. REASON FOR CONSULT: Acute kidney injury. CONSULTING PHYSICIAN: Dr. Vu. HPI: Mr. Benoit is a 56-year-old white male who has a history of chronic low back pain who was brought to the emergency room with fever and chills after being confused for several days. He remains confused today as to most recent events but states his is able to give a dowd explanation of how he has been at the hospital. According to the hospital notes, his altered mental status was sudden. In the emergency department it was found that he was confused. He had possibility of infiltrates bilateral with suspicions of pneumonia. Subsequently has been hospitalized. It is found that he has pancytopenia and hyperferritinemia with Dr. Chris keller. He has denied nausea, vomiting. No hemoptysis. No diarrhea. Positive for cough, positive for weakness. No chest pain or palpitations. PAST MEDICAL HISTORY: Chronic low back pain with a baseline creatinine of 0.7- 1.1. PREVIOUS SURGICAL HISTORY: Is back surgery. SOCIAL HISTORY: He is . He lives with his spouse. He has former smoker. Denies any history of alcohol or illicit drug use. FAMILY HISTORY: Negative for coronary or kidney disease. CURRENT ALLERGIES: No known drug allergies. HOME MEDICATIONS: Listed as baclofen, Prilosec, Desyrel, ibuprofen, gabapentin. CURRENT MEDICATIONS: Patient is on vancomycin, Zosyn, Advair, Xopenex, DuoNeb , Tylenol, normal saline at 100 mL an hour. REVIEW OF SYSTEMS: Times 10 with pertinent positives listed above in the HPI. VITAL SIGNS: His most recent vital signs. Temperature 100.6 degrees, blood pressure 123/70, heart rate 98, respirations are 20. He is on 4 L nasal cannula. Last recorded saturation is 97%. He has had 1655 in, 1675 out. Patient has been mostly in a negative fluid balance over the last 72-96 hours. LABS: His current lab. Sodium 132, potassium 3.4, chloride is 88, CO2 28, BUN 28 with a creatinine 2.5, glucose 118, anion gap 16, calcium 7.2, albumin 2.3. White count 1.34, hemoglobin 7.5, hematocrit 22.4 with a platelet count of 66,000. His last random vancomycin was 15.8. Plasma serum ethylene alcohol was negative. His RA factor was 12. His C- reactive protein is 302.13. His lactate dehydrogenase is 968. Last iron 39, his TIBC is 137. Total percent saturations 28, unsaturated iron 98, ferritin 29,006. Total bilirubin is 1.53 , AST 183, ALT 73, alkaline phosphatase 154. Patient has had a CT of the abdomen and pelvis with contrast on the with no increase in his creatinine until 24-48 hours after this infusion. No acute disease of his kidneys with small renal cyst noted. PHYSICAL EXAMINATION: General: This is a 56-year-old white male. He is slightly confused as in to most recent events. Skin is warm and dry. He is without pain or discomfort though he states that he is having a bad day. HEENT: Normocephalic, atraumatic. Conjunctivae pink. He has GAVIN. Mucous membranes are moist. Neck: Supple. Trachea midline. No JVD. Cardiovascular: Regular rate and rhythm. He is without murmur or gallop. Lungs: Clear to auscultation anterior. Faint inspiratory bibasilar crackles posterior. Remains on O2. Abdomen: Soft, round , nontender. Positive bowel sounds. Extremities: Have trace edema. No clubbing or cyanosis. Integumentary: No rashes or lesions evident. Neurological: As mentioned above. ASSESSMENT AND PLAN: 1. Acute kidney injury. This may be secondary to possible intravenous contrast for his CT and low fluid intake secondary to patient being in a negative fluid balance prior and during this episode after receiving his contrast. We agree with continuing his IV fluids as indicated. Renal ultrasound is essentially negative. Urine electrolytes are pending along with urine eosinophils. He is making adequate urine. We will continue to monitor and follow. 2. Electrolytes and acid-base balance. This is stable. 3. Anemia. This is currently being followed by Dr. Perez. Patient also has pancytopenia with hyperferritinemia with an elevated C. reactive protein. I would like to thank you for allowing us to follow with this patient. Seen, data reviewed, discussed with Durga Lockett on 10/28/16. I agree with the above assessment and plan of care. rg Dictated by MICHELLE Workman for Krystian Goetz MD cc: MICHELLE Workman MD [id number]
--- NOTE | 2016-10-27 17:10 | Diag Imaging Result Document ---
PROCEDURE NAME: US RENAL 2 (RETROPER) COMPLETE - 10/27/2016 RENAL ULTRASOUND: COMPARISON: 10/24/2016. FINDINGS: There is a right renal cyst. The kidneys and urinary bladder are otherwise normal and unchanged. IMPRESSION: No acute disease or change from prior.
[2016-10-28] MEDS: TYLENOL PO PRN ×2 (00:26→20:43)
[2016-10-28 06:32] LABS: ALBUMIN 2.2 g/dL (3.5-5.0); CALCIUM 7.3 mg/dL (8.8-10.2); POTASSIUM 3.2 mmol/L (3.5-5.1)
[2016-10-28] MEDS: NS 1,000 ML IV SCH ×2 (06:55→20:42)
[2016-10-28] MEDS: ZOSYN 2.25 GM/NS 2.25 GM/50 ML IVPB IV SCH (06:55)
[2016-10-28 07:43] LABS: HEMATOCRIT 21.1 % (42.0-52.0); HEMOGLOBIN 7.1 g/dL (14.0-18.0); IMM GRAN# 0.03 X1000 (0.0-0.04); LYMPH# 0.13 X1000 (1.2-3.4); LYMPH% 13.1 % (20.5-51.1); MANUAL DIFF NEEDED? YES; MCH 28.3 PG (27-31); MCHC 33.6 g/dL (33-37); MCV 84.1 FL (81-99); MONO# 0.08 X1000 (0.11-0.59); MONO% 8.1 % (1.7-9.3); MPV 12.7 FL (7.4-10.4); NEUT% 75.8 % (42.2-75.2); PLT 77 X1000 (130-400); RBC 2.51 XMIL (4.7-6.1)
[2016-10-28] MEDS: ADVAIR 250/50 DISKUS INH SCH ×2 (07:43→19:00)
[2016-10-28 08:37] LABS: BANDS 4 % (0-1); LYMPHS 24 % (21-51)
[2016-10-28] MEDS ORDERED: SENSORCAINE-MPF 0.5%/EPI 1:200,000 INJ ONE (09:36)
[2016-10-28] MEDS ORDERED: SENSORCAINE-MPF 0.5%/EPI 1:200,000 ONE (10:35)
[2016-10-28] MEDS ORDERED: DIPRIVAN 1% ONE (12:03)
[2016-10-28 12:30] LABS: FLOW CYTOMETERY SOURCE BONE MARROW; LEUKEMIA LYMPHOMA BY FLOW REFERRED FOR TESTING
[2016-10-28] MEDS ORDERED: XYLOCAINE-MPF 2% ONE (13:22)
[2016-10-28] MEDS ORDERED: KLOR-CON PO ONE ×2 (13:48→20:45)
[2016-10-28] MEDS ORDERED: ANESTHESIA PB SET 88 IN 5742 ONE (13:59)
[2016-10-28] MEDS ORDERED: LR 1,000 ML ONE (13:59)
[2016-10-28] MEDS ORDERED: MAXIPIME 2 GM/NS 2 GM/100 ML IVPB IV SCH ×2 (15:00→21:00)
--- NOTE | 2016-10-28 15:01 | PROGRESS NOTE ---
DATE: 10/28/2016 TIME SEEN: 08 SUBJECTIVE: Mr. Benoit is resting quietly in bed. He has just been cleaned up from having stool incontinence in the bed. He denies chest pain or increased work of breathing. No abdominal pain. No nausea. OBJECTIVE: His most recent vital signs, his temperature 98 degrees, blood pressure 145/76, heart rate 113, respirations 18. He is on 2 L nasal cannula. Last recorded saturation is 95%. He has had 2547 in, 1900 out. LABS: This a.m. sodium 131, potassium 3.2, chloride 92, CO2 24, BUN 30, creatinine 2.4, glucose 101, anion gap 15, calcium 7.3, phosphorus 3.2, albumin 2.2. White count 0.99, hemoglobin 7.1, hematocrit 21.1 with a platelet count of 77,000. PHYSICAL EXAMINATION: General: This is a 56-year-old white male. He is in no acute distress. Skin: Warm and dry. HEENT: Normocephalic, atraumatic. Conjunctiva is pale. He has GAVIN. Mucous membranes are dry. Neck: Supple. Trachea midline. No JVD. Cardiovascular: He is regular rate and rhythm. He is without murmur or gallop. Lungs: Clear to auscultation anterior. Continues with faint inspiratory crackles on the posterior bases. Remains on O2. Equal excursion. Abdomen: Large, round, soft, nontender, positive bowel sounds. Genitourinary: Rangel catheter remains in place. Extremities: Trace edema, no clubbing, or cyanosis. Integumentary: No rashes or lesions evident. Neurological: As above. Able to assist with exam. ASSESSMENT AND PLAN: 1. Acute kidney injury. Again the patient has JONA. Patient is slowly improving. He continues with IV fluids of normal saline at 100 mL an hour. Adequate urine out. No indications for any changes. We will continue to monitor. 2. Electrolytes and acid-base balance. Patient has mild hyponatremia. He remains on normal saline. He has hypokalemia. We will give him 1 supplemental dose today of potassium and reevaluate his labs in the a.m. 3. Acid-base balance. This remains stable. 4. Anemia with pancytopenia. This continues to be followed by Dr. Perez. I would like to thank you for allowing us to follow with this patient. Seen, data reviewed, discussed with Durga Lockett on 10/28/16. I agree with the above assessment and plan of care. rg Dictated by MICHELLE Workman for Krystian Goetz MD cc: MICHELLE Workman MD [facility]
[2016-10-28 15:48] LABS: URINE CULTURE NEEDED? NO; URINE MICRO REVIEW NEEDED? NO; URINE SOURCE CATH
[2016-10-28 15:57] LABS: BILIRUBIN URINE NEGATIVE (NEGATIVE); BLOOD URINE MODERATE (NEGATIVE); COLOR YELLOW; GLUCOSE URINE NEGATIVE (NEGATIVE); LEUKOCYTES URINE NEGATIVE (NEGATIVE); NITRITE URINE NEGATIVE (NEGATIVE); PROTEIN URINE 100 mg/dL (NEGATIVE); SP GRAVITY URINE 1.012; TURBIDITY URINE CLEAR (CLEAR); UROBILINOGEN URINE NORMAL (NORMAL)
[2016-10-28 15:58] LABS: UR EPITHELIAL CELLS <10 /HPF (<10); URINE BACTERIA NEGATIVE /HPF; URINE RBC 20-40 /HPF (<10); URINE WBC <10 /HPF (<10)
--- NOTE | 2016-10-28 16:17 | PROGRESS NOTE ---
DATE: 10/28/2016 SUBJECTIVE: Today Mr. Benoit referred to be doing a little better. Still continues to be slightly confused. He is mad because he has been kept NPO without food for the past 2 days. He is waiting on a bone marrow biopsy which from the nursing staff, hematology/oncology will not order and pathology wont order it either. I had to order that this morning. OBJECTIVE: Vital signs: Blood pressure is 148/57, pulse of 116, respirations 20, temperature 98.3 degrees. General: Mr. Benoit is a 56-year-old male. He was in bed. He is slightly altered. HEENT: Mucosa is dry. Anicteric. Acyanotic. Neck: Supple. Chest: Air entry is bilaterally reduced. There is diffuse bilateral end-expiratory wheezing. I did not appreciate any crepitations. Cardiovascular: Regular rate and rhythm. Abdomen: Distended but nontender. Bowel sounds present. Extremities: There is 1+ pedal edema bilateral. 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 He is oriented to person and to time, to date, but disoriented to place. He thinks he is in [facility] but he is able to say the year and the month and he knows himself. LABORATORY DATA: WBC is 0.99, hemoglobin is 7.1, platelet count of 77,000. Chemistry reviewed. Sodium is 131, potassium is 3.2, chloride 91, bicarb is 24 , creatinine is 2.4. Vitamin D is 5.0. ASSESSMENT AND PLAN: 1. Pancytopenia. Etiology is unclear. The patient has associated splenomegaly. The absolute reticulocyte count is less than 1 which is some ridiculously low for the level of anemia. I think there is a concern of a lympho-infiltrative disease to the bone marrow and he definitely needs a bone marrow biopsy. As I said, the patient has been pending this for the past 2 days and hematology/oncology will not order this so I will have to order it this morning. Hopefully, that will give us some answers. 2. Sepsis on presentation. Etiology is unclear. We will do a CT scan of the chest. Patient is wheezing. I think he might have some infection in the lungs. 3. Vitamin D deficiency, noted. 4. Acute kidney injury. Ultrasound was unremarkable. FENa was 1.1. I think the patient does have ATN. However, he was also given contrast on presentation so this could also be contrast induced. Nephrology is on board and will keep a close eye. Patient is currently on IV fluids. We will do a CT scan of the chest to see if there is any fluid retention in the lungs since I see he does have some edema in the lower extremities. 5. Neutropenia. Patient does have episodes of fever even up to yesterday and so I think this would be a neutropenic fever. He has been started on Neupogen. We would discontinue the Zosyn which can cause bone marrow suppression and start him on cefepime renally dosed. cc: Twin Brian MD MTDD
--- NOTE | 2016-10-28 17:01 | Diag Imaging Result Document ---
PROCEDURE NAME: CT THORAX W/O CONTRAST - 10/28/2016 CT THORAX WITHOUT CONTRAST: COMPARISON: CTA chest dated 10/24/2016. FINDINGS: There is evidence of prior granulomatous disease with a prominent calcified granuloma at the right lung base. There is interstitial thickening throughout both lungs that probably represent fibrotic change. This is completely stable as compared to the very recent previous study. Vaguely nodular pleural thickening throughout both lungs is unchanged. There are no new consolidations. There is no pleural fluid collection. There are several punctate lung nodules bilaterally that are unchanged and are nonspecific but certainly may represent noncalcified granulomata. There are calcified mediastinal lymph nodes and hilar lymph nodes indicating prior granulomatous disease. No significant lymphadenopathy is identified, otherwise. There is stable cardiomegaly. Limited views of the upper abdomen reveal splenomegaly that is stable as compared to the very recent previous study. IMPRESSION: Stable chest as described as compared to the very recent prior CTA of the chest.
[2016-10-29 06:43] LABS: HEMATOCRIT 19.9 % (42.0-52.0); HEMOGLOBIN 6.6 g/dL (14.0-18.0); LYMPH# 0.09 X1000 (1.2-3.4); MANUAL DIFF NEEDED? YES; MCH 28.2 PG (27-31); MCHC 33.2 g/dL (33-37); MONO# 0.04 X1000 (0.11-0.59); MONO% 6.7 % (1.7-9.3); MPV 11.5 FL (7.4-10.4); NEUT% 78.3 % (42.2-75.2); PLT 72 X1000 (130-400); RBC 2.34 XMIL (4.7-6.1)
[2016-10-29 06:53] LABS: ALBUMIN 2.1 g/dL (3.5-5.0); CALCIUM 7.3 mg/dL (8.8-10.2); POTASSIUM 3.3 mmol/L (3.5-5.1)
[2016-10-29] MEDS ORDERED: TYLENOL PO ONE (07:55)
[2016-10-29] MEDS ORDERED: BENADRYL IV ONE (07:56)
[2016-10-29] MEDS: ADVAIR 250/50 DISKUS INH SCH (08:06)
[2016-10-29 08:27] LABS: BANDS 5 % (0-1); HYPOCHROM 2+; LYMPHS 15 % (21-51); MONO 10 % (1-9)
[2016-10-29] MEDS ORDERED: MYCAMINE 100 MG in NS 100 ML IV SCH (09:00)
[2016-10-29] MEDS: TYLENOL PO PRN ×3 (10:09→20:52)
[2016-10-29] MEDS ORDERED: NS 500 ML IV ONE (11:22)
--- NOTE | 2016-10-29 12:27 | PROGRESS NOTE ---
DATE: 10/29/2016 SUBJECTIVE: This morning, Mr. Benoit refers to be doing fine. However, his vitals and his clinical picture does not look well. OBJECTIVE: Vital signs: Blood pressure is 115/41, pulse is 125, respirations 20, temperature is 102.2 degrees. General exam: Mr. Benoit is a 56-year-old male. He was in bed. He looks slightly tachypneic. HEENT: Mucosa is slightly dry. Anicteric. Acyanotic. Neck: Supple. Chest: Good air entry bilaterally. No crepitations. No rhonchi. Cardiovascular: Tachycardic, but no murmurs, no rubs, no gallops. Abdomen: Distended. Bowel sounds are decreased, but no tenderness. Extremities: Maybe 1+ pedal edema on the extremities. ATHLETIC EVENTS SCORER: Patient is alert and oriented x4. There is no focal neurological deficit. LABORATORY DATA: WBC is down to 0.60, hemoglobin is 6.2, platelet count is 72. The patient has only 75 bands on the peripheral smear. Absolute neutrophil count is 783. ASSESSMENT: 1. Pancytopenia. Numbers are getting worse, especially the white blood count and the hemoglobin. 2. Electrolytes. The patient is getting Neupogen and also getting blood transfusion today. 3. Sepsis, etiology is unclear. Patient continues to have tachycardia and he has fever. He is looking septic. So, we are going to move him from the floor to the intensive care unit. I did change his antibiotics to Meropenem. Consulted infectious disease and also added Micafungin for fungal coverage. 4. Neutropenic fever. The patient continues to be severely neutropenic and running temperatures. There will be some changes to his medications, and I have consulted infectious disease. I think patient is extremely sick and has tendency to even decompensate further , so will move him to the intensive care unit. 5. Acute kidney injury. Creatinine continues to rise. The patient is also being followed by nephrology. 6. Vitamin D deficiency. We will continue to replace this. GENERAL PLAN: In general, Mr. Benoit looks sicker than yesterday. He is now more febrile. He is tachypneic and tachycardic. I think he is getting more septic. We will make some changes to the antibiotics. I have added antifungal and have consulted ID. I am going to move him from the floor to the ICU for more close monitoring. We are going to give him a bolus of 1000 mL of fluid and maintain the current normal saline fluid at 100 mL/hour. I will re- evaluate him later on today to see how he is doing. CRITICAL TIME SPENT: 45 minutes. ADDENDUM: Of note, patient got a bone marrow biopsy yesterday and we are still pending the results. cc: Twin Brian MD MTDTerri
[2016-10-29] MEDS ORDERED: NEUPOGEN SUBQ ONE (12:42)
[2016-10-29] MEDS ORDERED: KLOR-CON PO ONE (13:22)
--- NOTE | 2016-10-29 13:45 | PROGRESS NOTE ---
DATE: 10/29/2016 SUBJECTIVE: Mr. Benoit is resting quietly in bed. He is attempting to eat his breakfast. He denies chest pain or increased work of breathing. OBJECTIVE: His most recent vital signs, temperature is 98 degrees, blood pressure 138/47, heart rate 120, respirations 18. He remains on 2 L nasal cannula. Last recorded saturation 98%. He has had 1649 in, 2025 out per Rangel catheter. LABS: Sodium 131, potassium 3.3, chloride 93, CO2 24, BUN 31, creatinine 2.6, glucose 210. Anion gap 14. Calcium 7.3, phosphorus 2.2, albumin 2.1. White count 0.60, hemoglobin 6.6, hematocrit 19.9 with a platelet count of 72,000. This was drawn on the at 8 p.m. PHYSICAL EXAM: This is a 56-year-old white male resting quietly in bed in no acute distress.Skin: Warm and dry. HEENT: Normocephalic, atraumatic. Conjunctivae pale pink. He has GAVIN. Mucous membranes moist. Neck: Supple. Trachea midline. No JVD. Cardiovascular: Regular rate and rhythm. He is without murmur or gallop. Lungs: Diminished breath sounds posterior bases. He does have some inspiratory and expiratory wheezes to the upper lobes, remains on O2. Equal excursion. Abdomen: Large, round, soft, nontender. Positive bowel sounds. Genitourinary: Rangel catheter remains in place with adequate urine out. Extremities: Have trace edema. No clubbing or cyanosis. Integumentary: No rashes or lesions evident. Neurological: Alert and oriented x3. ASSESSMENT AND PLAN: 1. Acute kidney injury. JONA. His creatinine has basically stabilized at this point. He continues with IV fluids. No indications for any changes. We will continue to monitor. 2. Electrolytes and acid-base balance. These do remain stable. 3. Hyponatremia continues. He remains on normal saline. 4. Patient is mildly hypokalemic. We will determine if she needs a dose of potassium supplement if not given. 5. Acid-base balance stable. 6. Anemia and pancytopenia followed by Dr. Perez. I would to thank you for allowing us to follow with this patient. Seen, data reviewed, discussed with Durga Lockett on 10/29/16. I agree with the above assessment and plan of care. rg Dictated by MICHELLE Workman for Krystian Goetz MD cc: MICHELLE Workman MD [facility]
[2016-10-29] MEDS: MERREM 1 GM in NS 50 ML IV SCH ×2 (14:08→20:23)
[2016-10-29] MEDS ORDERED: NS 1,000 ML ONE (14:22)
[2016-10-29] MEDS ORDERED: DILAUDID PO PRN (14:32)
[2016-10-29] MEDS ORDERED: DULCOLAX PR PRN (14:33)
[2016-10-29] MEDS ORDERED: DULCOLAX PR ONE (14:45)
[2016-10-29] MEDS: CUBICIN (FOR INPATIENT USE) 750 MG in NS 100 ML IV SCH (14:59)
--- NOTE | 2016-10-29 15:18 | CONSULTATION ---
DATE OF CONSULTATION: 10/29/2016 CONCLUSION: The patient has neutropenic fever. The cause of the neutropenia is uncertain to me. Given that he does have neutropenic fever he is at a very high risk of having an infection which as of yet has not been identified. The patient does complain of low back pain and apparently this is a chronic complaint but it could be that he has an infection in the spine. RECOMMENDATIONS: I have discontinued cefepime and micafungin and I have put him on a combination of meropenem and daptomycin. Also, I have ordered a portable x-ray of the patient's lumbar spine. DISCUSSION: I was unable to obtain a history from this patient. He has an altered mental status. He is somewhat stuporous. He does not answer my questions and many times when he talks I cannot really understand what he is talking about. In any event, the history that I have looked at is what is contained in the computer. He was brought in to the hospital because of fever, low back pain and altered mental status. His CBC shows a white count of 600, hemoglobin 6.6 and platelet count 72,000. Creatinine is 2.6. The GFR is 26. Blood and urine cultures are negative. Swab for influenza is negative. CT scan of the chest shows calcified nodes compatible with granulomatous disease. CT scan of the abdomen shows splenomegaly and a fatty liver. Thus far blood and urine cultures are negative and swab for influenza is negative as well. His home medications consist of Desyrel, Prilosec, ibuprofen, gabapentin and baclofen. MEDICAL DISEASES: He has a chronic low back pain. PAST SURGICAL HISTORY: Patient has had back surgery. ALLERGIES: He has no known drug allergies. SOCIAL HISTORY: He smokes cigarettes but does not have a history of alcohol intake or drug abuse. PHYSICAL EXAMINATION: The patient's temperature is 102.2 degrees. Pulse is 125, respirations 20, blood pressure 115/41. Patient weighs 269 pounds.General: This is an ill-appearing middle-aged male. He appears to be in no acute disease but he is lethargic and confused. Head eyes, ears, nose, and throat: No drainage noted from the nose or ears. Inspection of the mouth showed no white patches or bleeding. Neck: No meningismus. Thorax: No increased AP diameter. Lungs: Clear to auscultation. Cardiovascular: Heart rate is regular. There is edema of the legs with peripheral pulses palpable. Abdomen: Seems somewhat protuberant. It is soft and nontender. Neurologic: Patient is awake. He did move his extremities to request. There was no tremor. He was unable to give me any medical history about him. Integument: No rash is noted. Thank you for the consult. I should mention the patient had a bone marrow biopsy done and the report of it is pending. cc: Michael Ingram MD
[2016-10-29] MEDS: NS 1,000 ML IV SCH ×2 (18:30→18:34)
[2016-10-29] MEDS ORDERED: NS 250 ML ONE (22:57)
[2016-10-30] MEDS: TYLENOL PO PRN ×5 (03:17→22:53)
[2016-10-30] MEDS: MERREM 1 GM in NS 50 ML IV SCH ×3 (03:18→20:04)
[2016-10-30 04:44] LABS: HEMATOCRIT 24.4 % (42.0-52.0); IMM GRAN# 0.11 X1000 (0.0-0.04); IMM GRAN% 10.9 % (0.0-0.5); LYMPH# 0.11 X1000 (1.2-3.4); LYMPH% 10.9 % (20.5-51.1); MANUAL DIFF NEEDED? YES; MCH 28.1 PG (27-31); MCHC 32.8 g/dL (33-37); MCV 85.6 FL (81-99); MONO# 0.04 X1000 (0.11-0.59); MPV 11.2 FL (7.4-10.4); NEUT% 73.2 % (42.2-75.2); PLT 57 X1000 (130-400); RBC 2.85 XMIL (4.7-6.1)
[2016-10-30 05:00] LABS: BANDS 8 % (0-1); LYMPHS 16 % (21-51); MONO 4 % (1-9)
[2016-10-30 05:04] LABS: CALCIUM 7.3 mg/dL (8.8-10.2); POTASSIUM 3.4 mmol/L (3.5-5.1)
[2016-10-30] MEDS: ADVAIR 250/50 DISKUS INH SCH ×3 (07:55→19:40)
[2016-10-30] MEDS: XOPENEX NEB INH PRN ×3 (07:55→15:54)
[2016-10-30] MEDS: NS 1,000 ML IV SCH ×4 (08:21→20:04)
--- NOTE | 2016-10-30 09:09 | PROGRESS NOTE ---
DATE: 10/27/2016 ADDENDUM: Note that serum creatinine has jumped up from 1, 2.5. I am given him normal saline 100 mL an hour. I am going to check an ultrasound of his renal system, I am going to ask Dr. Goetz to help, concerned about possible ATN. I am going to stop his vancomycin for now, continue his Zosyn. cc: Denilson Steven MD
--- NOTE | 2016-10-30 13:00 | PROGRESS NOTE ---
DATE: 10/30/2016 SUBJECTIVE: He was moved to the ICU. I am not sure of the reason. He did have fever. Currently, he does not complain of anything new, except for fever. No chest pain, shortness of breath, nausea, or vomiting. OBJECTIVE: Vital Signs: Blood pressure 147/77, heart rate 108, respirations 28, temperature 99.2 degrees. Intake 3.4 L. Output 1.7 L. General Appearance: No acute distress. Skin: Warm and dry. Eyes: Conjunctivae are pink. Neck: Neck veins are not distended. Trachea is midline. Heart: Regular, without gallops or murmurs. Lungs: Have equal breath sounds. No crackles. Abdomen: Soft and nontender. Bowel sounds are present. Extremities: Have no edema, clubbing, or cyanosis. LABORATORY DATA: Sodium 134, potassium 3.4, chloride 98, bicarbonate 23. BUN 32, creatinine 2.3. IMPRESSION: Acute kidney injury. Contrast induced nephropathy secondary to pulmonary arteriogram. His creatinine has peaked and is slightly better today. Urine output is excellent. Electrolytes and acid-base are in target. No new changes. cc: Krystian Goetz MD
--- NOTE | 2016-10-30 13:46 | PROGRESS NOTE ---
DATE: 10/30/2016 Today Mr. Benoit referred to be doing a whole lot better. He denies any chest pain. He denies any shortness of breath. He said he had about 2 bowel movements and he wants something to eat. OBJECTIVE: Vital signs: Blood pressure is 114/67, pulse of 103, respirations 27, temperature is 98.2 degrees. General: Mr. Benoit is a 56-year-old male. He was in bed. He does not seem to be in any distress. HEENT: Mucosa is pink and moist. Anicteric. Acyanotic. Neck: Supple. Chest: Good air entry bilateral. No crepitations, no rhonchi. Cardiovascular: Regular rate and rhythm. Abdomen: Soft, nontender. It is distended, but bowel sounds are present. Extremities: No pedal edema. PATIENT REGISTRAR: Patient is alert, is oriented to person, to place and to time. Follows commands and is able to sustain rational conversation. LABORATORY DATA: WBC is up to 1.01, hemoglobin is 8.0, platelet count is 57,000, sodium is 130. Chemistry: Sodium is 134, potassium is 3.4, chloride is 98, bicarb is 23, BUN is 23, creatinine is 2.3. Glucose is 208. CURRENT MEDICATIONS: 1. Daptomycin 750 mg q 48. 2. Meropenem 1 g q.8. ASSESSMENT: 1. Pancytopenia. Etiology is unclear. The patient is status post a bone marrow biopsy. We are still waiting for the results. 2. Sepsis, etiology is unclear. Blood cultures so far have been negative. The patient is currently on meropenem and daptomycin and he seems to be improving. At least he has not been febrile since early this morning. 3. Neutropenic fever. ID is on board. We will continue with the current antibiotics. 4. Acute kidney injury. Likely acute tubular necrosis. Nephrology is on board. 5. Vitamin D deficiency. We will continue to replace. PLAN: In general, Mr. Benoit seems a little bit better today than yesterday. His vitals are marginally stable. He continues to be slightly tachycardic. I will go up slightly on his fluids to 125 mL/h to see if we can improve with the intravascular space. We are still pending his bone marrow biopsy and will continue with the current antibiotics. cc: Twin Brian MD
--- NOTE | 2016-10-30 16:25 | PROGRESS NOTE ---
DATE: 10/30/2016 PRESENT ILLNESS: The patient has neutropenic fever. The cause of his fever is uncertain to me. I would assume he has some type of infection. It may well be in the lungs and it did not show up on the initial treatments because his white blood cell count was so low that there was not enough white cells to have pus which would show up on the chest x-ray. MEDICATIONS: Currently, the patient is on daptomycin and meropenem. PHYSICAL EXAMINATION: Vital Signs: Temperature is 99.5 degrees, pulse 106, respirations 26, blood pressure 118/67. General: This is an obese, middle-aged male. He is in no acute distress. Ear/nose/throat: No drainage noted from the nose or ears. Neck: No meningismus. Lungs: Clear to auscultation. Cardiovascular: Regular heart rate. Abdomen: Soft and nontender. Neurologic: Patient is more alert. He followed request to move his extremities. LAB AND X-RAY: There is no new x-ray today. The CBC for today shows a white count of 1100, hemoglobin 8, platelet count 57,000. The absolute neutrophil count is 740. Blood and urine cultures are sterile. Creatinine is 2.3. GFR is 30. ASSESSMENT AND PLAN: Patient has neutropenic fever. My plan is to continue with his 2 antibiotics. The dose of meropenem has been modified because the patient is in renal failure. The patient did complain of low back pain. I ordered an x-ray of the C-spine but it has not been done. Therefore I have put in another order to obtain a portable x-ray of the spine. I am going to continue with the patient's current antibiotics. COMORBIDITIES: He is a cigarette smoker and apparently has had problems with chronic low back pain for quite a while. Patient has had back surgery as well. cc: Michael Ingram MD
[2016-10-31] MEDS: NS 1,000 ML IV SCH (02:21)
[2016-10-31] MEDS: MERREM 1 GM in NS 50 ML IV SCH ×3 (03:01→20:11)
[2016-10-31] MEDS: TYLENOL PO PRN ×3 (03:49→22:57)
[2016-10-31 05:36] LABS: EOS# 0.01 X1000 (0.0-0.7); HEMOGLOBIN 8.6 g/dL (14.0-18.0); IMM GRAN# 0.09 X1000 (0.0-0.04); IMM GRAN% 8.8 % (0.0-0.5); LYMPH# 0.22 X1000 (1.2-3.4); LYMPH% 21.6 % (20.5-51.1); MANUAL DIFF NEEDED? YES; MCH 28.4 PG (27-31); MCHC 33.1 g/dL (33-37); MCV 85.8 FL (81-99); MONO# 0.05 X1000 (0.11-0.59); MONO% 4.9 % (1.7-9.3); MPV 11.5 FL (7.4-10.4); NEUT% 62.7 % (42.2-75.2); PLT 59 X1000 (130-400); RBC 3.03 XMIL (4.7-6.1)
[2016-10-31 05:38] LABS: ALBUMIN 2.2 g/dL (3.5-5.0); CALCIUM 7.5 mg/dL (8.8-10.2); POTASSIUM 3.7 mmol/L (3.5-5.1)
[2016-10-31 06:44] LABS: BANDS 15 % (0-1); LYMPHS 15 % (21-51); MONO 5 % (1-9)
[2016-10-31] MEDS: XOPENEX NEB INH PRN (08:07)
[2016-10-31] MEDS: ADVAIR 250/50 DISKUS INH SCH ×2 (08:07→19:15)
--- NOTE | 2016-10-31 08:23 | Diag Imaging Result Document ---
PROCEDURE NAME: CHEST-1 VIEW - 10/31/2016 SINGLE FRONTAL RADIOGRAPH OF THE CHEST: COMPARISON: 10/23/2016. FINDINGS: Inspiration is slightly suboptimal. Central vascular markings are somewhat prominent suggesting pulmonary venous congestion most likely. There is probably a component of mild central interstitial edema. Cardiac silhouette is borderline prominent but stable. IMPRESSION: Suggestion of pulmonary venous congestion and, perhaps, mild interstitial edema.
--- NOTE | 2016-10-31 09:04 | PROGRESS NOTE ---
DATE: 10/31/2016 SUBJECTIVE: Awake and alert. He still complains of weakness and fever. OBJECTIVE: Vital Signs: Blood pressure 134/70, heart rate 107, respirations 45, afebrile. T-max 100.8 degrees. Intake 4.2 L. Output 2.5 L. General Appearance: No acute distress. Skin: Warm and dry. Eyes: Conjunctivae are pink. Neck: Neck veins are not distended. Trachea is midline. Cardiovascular: Heart is regular. Lungs: Have equal breath sounds. No crackles. Abdomen: Obese and soft. Bowel sounds are present. Extremities: Have trace edema. No clubbing or cyanosis. LABORATORY DATA: Sodium 135, potassium 3.7, chloride 99, bicarbonate 21, BUN 31, creatinine 2.2. Hemoglobin 8.6. IMPRESSION: 1. Acute kidney injury. Likely acute tubular necrosis following contrast. Slow, but progressive improvement in BUN and creatinine. No interventions are required. Urine output is improving. 2. Electrolytes/acid base. Acceptable. cc: Krystian Goetz MD
[2016-10-31] MEDS: GRANIX SUBQ SCH (10:13)
--- NOTE | 2016-10-31 11:11 | Diag Imaging Result Document ---
PROCEDURE NAME: LUMBAR SPINE - 10/31/2016 LUMBAR SPINE AP AND LATERAL WITH OBLIQUES, SIX VIEWS: FINDINGS: There has been extensive surgery to the lower lumbar spine. There are posterior plates with multiple screws. No evidence of loosening. No compressed vertebra. No subluxation. Small degenerative bone spurring in the upper lumbar spine. Moderate atherosclerosis. IMPRESSION: Extensive prior surgery to the lower back with mild degenerative changes in the upper lumbar spine.
[2016-10-31 12:41] LABS: INR 1.25; PROTIME 13.3 Seconds (9.2-11.7)
--- NOTE | 2016-10-31 13:02 | PROGRESS NOTE ---
DATE: 10/31/2016 SUBJECTIVE: Today Mr. Benoit referred to be doing a lot better. Denies any acute complaints. OBJECTIVE: Vital signs: Blood pressure is 158/82, pulse of 107, respirations 28, temperature is 97.4 degrees. Patient did have a few rounds of temperature yesterday with a T- max of 100.9 degrees. General: Objectively Mr. Benoit is a 56-year-old male. He was in bed. He did not seems to be in any major distress. HEENT: Mucosa is pink and moist. Anicteric. Acyanotic. Neck: Supple. Chest: Good air entry bilaterally. A few bibasilar crepitations. Cardiovascular: Regular rate and rhythm. No murmurs, no rubs. No gallops. Abdomen: Distended, but nontender. Bowel sounds are slightly hypoactive. Extremities: No pedal edema. ADMISSIONS NURSE: Patient is alert and oriented. There is no focal neurological deficit. LABORATORY DATA: 1. WBC is 1.02, hemoglobin is 8.6, platelet count is 59. There is about 15% of bands on peripheral smear. 2. Chemistry: Sodium is 135, potassium is 3.7, chloride 99, bicarbonate is 21, BUN is 31, creatinine is 2.1. Patient's urine output is 2470 which is remarkably fine. 3. So far, blood cultures have been negative. IMAGING: A chest x-ray this morning has shown pulmonary venous congestion and perhaps mild interstitial edema. ASSESSMENT: 1. Pancytopenia, etiology is unclear. We are still pending the official bone marrow result. I got a call from the pathologist. There seems like there are some myelofibrotic changes and also necrosis of the marrow. We are still pending the official report 2. Neutropenic fever. Unsure what is driving this. Patient continues to have some fevers after yesterday. He is currently on daptomycin and meropenem and infectious disease is on board. 3. Acute kidney injury, likely acute tubular necrosis. Urine output is adequate. Creatinine is slightly improving. We are going to continue with the current care. However , patient seems to be having some fluid retention in the lungs, so we would discontinue the intravenous fluids and make sure we avoid any nephrotoxic drugs. 4. Vitamin D deficiency. We will continue to replace this. 5. Mild pulmonary edema likely from over hydration. We are going to discontinue the intravenous fluids. I think patient has been well resuscitated from a fluid standpoint, and we do not want to over hydrate him. 6. Sepsis, source is unclear. CT abdomen, pelvis and chest has not revealed anything. Blood cultures have been negative. However, continue with the meropenem and daptomycin. I think somewhere along the line we might probably have to add an antifungal if patient continues to have fevers. Infectious Disease is on board and we will defer recommendations to them. cc: Twin Brian MD MTDD
[2016-10-31] MEDS ORDERED: NS 250 ML ONE (13:15)
[2016-10-31] MEDS: CUBICIN (FOR INPATIENT USE) 750 MG in NS 100 ML IV SCH (14:43)
--- NOTE | 2016-10-31 18:01 | PROGRESS NOTE ---
DATE: 10/31/2016 PRESENT ILLNESS: The patient has neutropenic fever. The temperature is trending down. His white count however remains low and his absolute neutrophil count also was very low at 640. The patient's chest x-ray shows bilateral congestion. I think it is possible that some of this could be due to infection. The back x-ray shows extensive surgery and degenerative joint disease but no evidence of infection. The patient remains neutropenic. MEDICATIONS: The patient is on a combination of daptomycin and meropenem. PHYSICAL EXAMINATION: Vital Signs: Temperature is 98.8 degrees, pulse 103, respirations 29, blood pressure 147/71. General: This is a somewhat ill-appearing, middle-aged male. He is in no acute distress. Lungs: Clear to auscultation. Cardiovascular: Heart rate is regular. Abdomen: Seems protuberant. It is a slightly firm but it is not tender and the patient is not complaining of any pain in it. Neurologic: The patient is awake. He can move his extremities. When he talks is I cannot understand him well at all. LAB AND X-RAY: CBC-WBC 1.02, hgb 8.6, platelets 59K, ANC 640. Creatinine 2.2. GFR 31. Blood and urine cultures sterile. C. diff toxin negative. No new radiology. ASSESSMENT AND PLAN: The patient has neutropenic fever. I think it is possible he has some pneumonia. My plan would be to continue with his current antibiotics namely daptomycin and meropenem. His sensorium I think overall is improved. COMORBIDITIES: Patient's comorbidities include he smokes cigarettes. He has chronic low back pain and he has had prior back surgeries. cc: Michael Ingram MD MTDD
[2016-11-01] MEDS: MERREM 1 GM in NS 50 ML IV SCH ×3 (04:55→20:59)
[2016-11-01 07:19] LABS: BASO% 0.8 % (0.0-0.8); HEMATOCRIT 24.3 % (42.0-52.0); HEMOGLOBIN 7.9 g/dL (14.0-18.0); IMM GRAN# 0.17 X1000 (0.0-0.04); IMM GRAN% 13.3 % (0.0-0.5); LYMPH# 0.19 X1000 (1.2-3.4); LYMPH% 14.8 % (20.5-51.1); MANUAL DIFF NEEDED? YES; MCH 27.7 PG (27-31); MCHC 32.5 g/dL (33-37); MCV 85.3 FL (81-99); MONO# 0.04 X1000 (0.11-0.59); MONO% 3.1 % (1.7-9.3); MPV 10.1 FL (7.4-10.4); PLT 44 X1000 (130-400); RBC 2.85 XMIL (4.7-6.1)
[2016-11-01 07:29] LABS: ALBUMIN 1.9 g/dL (3.5-5.0); CALCIUM 7.3 mg/dL (8.8-10.2); POTASSIUM 3.5 mmol/L (3.5-5.1); TOTAL BILIRUBIN 1.56 mg/dL (0.20-1.00); TOTAL PROTEIN 4.3 g/dL (6.3-8.3)
[2016-11-01 07:44] LABS: BANDS 10 % (0-1); HYPOCHROM OCCASIONAL; LYMPHS 10 % (21-51); MONO 10 % (1-9)
[2016-11-01] MEDS: TYLENOL PO PRN ×2 (07:51→21:28)
[2016-11-01] MEDS: GRANIX SUBQ SCH (08:12)
[2016-11-01] MEDS: XOPENEX NEB INH PRN (08:48)
[2016-11-01] MEDS: ADVAIR 250/50 DISKUS INH SCH ×2 (08:50→19:55)
[2016-11-01] MEDS: MYCOSTATIN SUSP PO SCH ×4 (09:52→21:33)
[2016-11-01] MEDS: VALTREX PO SCH ×2 (13:00→21:28)
--- NOTE | 2016-11-01 13:08 | PROGRESS NOTE ---
DATE: 11/01/2016 SUBJECTIVE: Today, I was able to speak with the of Mr. Benoit. According to the , Mr. Benoit has actually been sick for the past 1 month. Initially it started as shortness of breath which has progressively gotten worse and then associated with some dry cough. Subsequently, he developed fever and hematuria. He was sent to see Dr. Cabezas because of blood in the urine. The patient was subsequently brought to the emergency department because he was just not doing well. Today, he refers to be doing a little better but extremely weak to do anything for himself. OBJECTIVE: Vital signs: Blood pressure is 115/65, pulse is 104, respiration is 29 temperature 96.7 degrees. Of note, patient had a temperature of 103.2 degrees, earlier today. General: On general exam, Mr. Ross is a 56-year-old male. He was in bed. He did not seem to be in any distress. HEENT: Mucosa is pink and moist. Anicteric. Acyanotic. Neck: Supple. Chest: Air entry is bilaterally reduced. There is diffuse bilateral end expiratory wheezing and prolonged expiratory phase of respiration. Cardiovascular: Tachycardic but regular. No murmurs, no rubs. No gallops. Abdomen: Soft, distended. Bowel sounds are present. Extremities: No pedal edema. DOCUMENT REVIEW SPECIALIST: Patient is alert, he is oriented x4. There is no focal neurological deficit except the patient is kind of slow in response. LABORATORY DATA: WBC is 1.28, hemoglobin is 7.9, platelet count of 44,000. There is 10% of bands on the peripheral smear. Sodium is 135, potassium is 3.5, chloride 98, bicarb is 22, BUN is 35, creatinine is slightly down to 2.1. AST 238, ALT is 65. Alkaline phosphatase is 342. The lumbar spine x-ray done yesterday did show extensive prior surgery to the lower back with mild degenerative changes. ASSESSMENT: 1. Pancytopenia, etiology is unclear. The patient also has splenomegaly. So far, preliminary results from the bone marrow is showing some necrosis of the marrow; however , there is also some suspicion of myelofibrosis. I think in the context of pancytopenia with some megakaryocytes splenomegaly and also hypoproliferative bone marrow state I think myelofibrosis becomes very high on the differential. 2. Neutropenic fever. Patient continues to be febrile even after being on daptomycin and meropenem for the past 3 days. I am going to add valacyclovir just to be sure if there is not any viral component since patient also has transaminitis which we are not quite sure of the etiology of this. I am thinking maybe a CMV or Brianna by virus or herpes. I will send serologies for all these but I also think with the bone marrow biopsy would also do cultures. Viral cultures as well and give us some insight. 3. Acute kidney injury due to acute tubular necrosis. This is progressively improving. Patient's urine output today is 2910, which is very adequate and creatinine is continuing to drop. We will just be watching this closely and avoid any nephrotoxic drugs. 4. Bronchospasms. Patient is having some wheezing and I think part of it could be pneumonia which we are treating but I think it is more atelectasis and some pleural effusions from previous hydration. We will encourage incentive spirometer and also encourage the patient to sit up more in the chair. Hopefully this should resolve. 5. Sepsis, etiology is unclear. Patient continues to be tachycardic and febrile. Blood cultures so far have been negative for 48 hours and for 5 days. The stool cultures have not shown any enteric pathogen, clostridium difficile toxin is also negative. Urine culture is negative so it is kind of hard to believe this is all infectious or it could be culture negative bacteria or a viral pathogen, which is causing this. As I said, I have added valacyclovir since this morning. We will be pending on Infectious disease to evaluate the patient to give us some more recommendations. 6. Transaminitis, etiology is unclear. So far the hepatitis panel is negative. We will do a CMV and Brianna-Lama titers to see if they are implicated. In general, I think Mr. Benoit is doing a little bit better. We still do not have the pathology report complete yet. We will continue with the current antibiotics and I have added antiviral as well. I had a very lengthy discussion with the and she is also hoping to get some answers from the bone marrow biopsy. CRITICAL CARE TIME: Forty-five minutes. cc: Twin Brian MD MTDD
[2016-11-01] MEDS: LIORESAL PO SCH ×3 (13:20→21:28)
--- NOTE | 2016-11-01 14:11 | PROGRESS NOTE ---
DATE: 11/01/2016 SUBJECTIVE: The patient is resting in bed. He is awake and alert in no acute distress. HEENT: Normocephalic, atraumatic. His oral mucosa is moist. Neck is supple. Trachea midline. Cardiovascular: Regular rate and rhythm. Pulmonary: Equal excursion. Clear bilaterally. Abdomen obese, soft, positive bowel sounds. : Not inspected. Extremities: No edema. No clubbing , cyanosis. OBJECTIVE: Vital Signs: Temperature 98.2, pulse 120, respiratory rate 34, blood pressure 135/62. Intake 3.3 L. Output 2.9 L. LAB DATA: WBC of 1.2, hemoglobin 7.9, sodium 135, potassium 3.5, CO2 of 22. BUN 35, creatinine 2.1. ASSESSMENT AND PLAN: 1. Acute kidney injury. Acute tubular necrosis following IV contrast. His renal function continues to slowly improve. He has no indications for dialysis at this time. We will continue to monitor. 2. Anemia. Followed by primary. 3. Fluid volume. He is not overloaded. Dictated by MICHELLE Iqbal for Krystian Goetz MD Data reviewed, discussed with Khushbu on 11/01/16. I agree with the above assessment and plan of care. cc: Krystian Goetz MD [facility]
[2016-11-01 20:24] LABS: ALLEN TEST YES; BE -0.5 mmoll (-3.0-3.0); BLOOD TYPE ARTERIAL; DRAW SITE R RADIAL; METHB 1.4 % (0.0-1.5); O2(CT) 10.4 mL/dL (15.0-23.0); PCO2(98.6) 39 mmHg (35-45); PO2(98.6) 65 mmHg (60-100); SAMPLE BLOOD; THB 7.8 g/dL (11.5-17.4)
[2016-11-01 20:25] LABS: MODALITY CANNULA
--- NOTE | 2016-11-01 20:47 | Diag Imaging Result Document ---
PROCEDURE NAME: CHEST-PORTABLE - 11/01/2016 PORTABLE SUPINE CHEST: FINDINGS: Compared to 10/31/2016. The patient is rotated to the left. The heart remains mildly prominent. There are infiltrates in the lower right lung. No pleural effusions identified. Overall appearance is similar considering the differences in technique and rotation. IMPRESSION: Stable chest.
[2016-11-01 20:51] LABS: HEMATOCRIT 23.1 % (42.0-52.0); HEMOGLOBIN 7.6 g/dL (14.0-18.0); IMM GRAN# 0.17 X1000 (0.0-0.04); IMM GRAN% 14.2 % (0.0-0.5); LYMPH# 0.19 X1000 (1.2-3.4); LYMPH% 15.8 % (20.5-51.1); MANUAL DIFF NEEDED? YES; MCHC 32.9 g/dL (33-37); MCV 85.2 FL (81-99); MONO# 0.07 X1000 (0.11-0.59); MONO% 5.8 % (1.7-9.3); MPV 11.4 FL (7.4-10.4); NEUT% 64.2 % (42.2-75.2); PLT 40 X1000 (130-400); RBC 2.71 XMIL (4.7-6.1)
[2016-11-01] MEDS ORDERED: NEURONTIN PO SCH (21:00)
[2016-11-01 21:08] LABS: BANDS 12 % (0-1); LYMPHS 8 % (21-51); MONO 4 % (1-9)
[2016-11-01] MEDS: DESYREL PO SCH (21:28)
[2016-11-01] MEDS ORDERED: NS 500 ML ONE (23:18)
[2016-11-01] MEDS ORDERED: NS 500 ML IV ONE (23:19)
[2016-11-02] MEDS: MERREM 1 GM in NS 50 ML IV SCH ×3 (04:10→20:48)
[2016-11-02] MEDS ORDERED: NS 500 ML IV ONE ×2 (05:42→23:18)
[2016-11-02] MEDS: ADVAIR 250/50 DISKUS INH SCH ×2 (07:50→21:43)
[2016-11-02] MEDS: LIORESAL PO SCH ×2 (08:36→14:10)
[2016-11-02] MEDS ORDERED: NEURONTIN PO SCH (09:00)
[2016-11-02 09:06] LABS: HEMATOCRIT 21.2 % (42.0-52.0); HEMOGLOBIN 6.9 g/dL (14.0-18.0); LYMPH# 0.18 X1000 (1.2-3.4); LYMPH% 13.8 % (20.5-51.1); MANUAL DIFF NEEDED? YES; MCHC 32.5 g/dL (33-37); MCV 86.2 FL (81-99); MONO# 0.08 X1000 (0.11-0.59); MONO% 6.2 % (1.7-9.3); MPV 12.1 FL (7.4-10.4); PLT 47 X1000 (130-400); RBC 2.46 XMIL (4.7-6.1)
[2016-11-02 09:24] LABS: BANDS 13 % (0-1); LYMPHS 7 % (21-51); MONO 7 % (1-9)
[2016-11-02 09:46] LABS: ALBUMIN 1.5 g/dL (3.5-5.0); CALCIUM 7.2 mg/dL (8.8-10.2); POTASSIUM 3.5 mmol/L (3.5-5.1); TOTAL BILIRUBIN 1.53 mg/dL (0.20-1.00); TOTAL PROTEIN 3.9 g/dL (6.3-8.3)
[2016-11-02] MEDS: VALTREX PO SCH ×2 (10:33→20:09)
[2016-11-02] MEDS: MYCOSTATIN SUSP PO SCH ×4 (10:42→20:09)
[2016-11-02] MEDS: GRANIX SUBQ SCH (11:00)
[2016-11-02] MEDS ORDERED: NS 1,000 ML IV ONE (12:08)
--- NOTE | 2016-11-02 12:12 | PROGRESS NOTE ---
DATE: 11/02/2016 SUBJECTIVE: Patient is resting in bed. No acute distress. OBJECTIVE: Vital Signs: Temperature 98.4 degrees, pulse 114, respiratory 24, blood pressure 87/53. Intake 1.5 L. Output 1.6 L. General: Middle-aged gentleman, resting in bed. He is asleep. No acute distress. HEENT: Normocephalic, atraumatic. His oral mucosa is moist. Neck: Supple. There is no JVD noted. Cardiovascular: Regular rate and rhythm. No murmur. Pulmonary: Equal excursion. He is clear bilaterally. Abdomen: Obese, soft. He has positive bowel sounds. : Not inspected. Extremities: No clubbing or cyanosis. Trace pretibial edema. Integumentary: Skin is warm and dry. LAB DATA: Pending. ASSESSMENT AND PLAN: 1. Acute kidney injury/acute tubular necrosis. We are awaiting his lab values from this morning. He has been having progressive improvement. Continue labs daily. 2. Fluid volume. He is not overloaded at this time. Urine intake and output have been equivalent. 3. Pancytopenia, neutropenic fever. Followed by primary. Dictated by MICHELLE Iqbal for Krystian Goetz MD Data reviewed, discussed with Khushbu on 11/02/16. I agree with the above assessment and plan of care. cc: Krystian Goetz MD [facility]
[2016-11-02] MEDS ORDERED: NS 500 ML ONE (12:24)
[2016-11-02] MEDS ORDERED: ATIVAN IV ONE (13:36)
[2016-11-02 13:52] LABS: ALLEN TEST YES; BE -3.8 mmoll (-3.0-3.0); BLOOD TYPE ARTERIAL; DRAW SITE L RADIAL; METHB 1.4 % (0.0-1.5); MODALITY CANNULA; O2(CT) 9.2 mL/dL (15.0-23.0); PCO2(98.6) 39 mmHg (35-45); PO2(98.6) 63 mmHg (60-100); SAMPLE BLOOD; SAO2 96.8 % (95.0-100.0); THB 6.9 g/dL (11.5-17.4); pH(98.6) 7.35 (7.35-7.45)
[2016-11-02] MEDS: CUBICIN (FOR INPATIENT USE) 750 MG in NS 100 ML IV SCH (14:00)
--- NOTE | 2016-11-02 16:20 | PROGRESS NOTE ---
DATE: 11/02/2016 SUBJECTIVE: Today Mr. Benoit looks a whole lot sicker than before. The was at the bedside at the time of the encounter. OBJECTIVE: Vital signs: Blood pressure is 91/47, pulse is 116, temperature is 98.3 degrees, respirations 25. Of note patient has been hypotensive since yesterday at about 2337 and he has remained in the borderline hypertension since. General: Mr. Benoit is a 56-year-old male. He is in bed, not in any distress. HEENT: Mucosa is pale. Anicteric and acyanotic. Neck: Supple. Chest: Air entry is bilaterally reduced. There is diffuse bilateral posterior lung crepitations. Cardiovascular: Regular rate and rhythm. Abdomen: Is soft, distended. Is mildly tender more so on both upper quadrants. SOFTWARE IMPLEMENTATION SPECIALIST: Patient is drowsy but easily arousable and follows basic commands and able to sustain a conversation. Patient was able to identify his and call out her name. He was also able to know where he is and his name and the date. The patient was making multiple would jerky movements of all extremities. I think it is medication related. LABORATORY DATA: WBC is 1.30, hemoglobin is 6.9, platelet count 47,000, there is 13% of bands on the peripheral smear. Chemistry is reviewed. BUN went up to 54, creatinine is also up to 3.2, AST is up to 315, ALT is 59, alkaline phosphatase is also 321. Albumin is 1.5. So far blood cultures have been no growth. A chest x-ray done yesterday did show infiltrates in the lower left lung. ASSESSMENT: 1. Pancytopenic. Etiology is unclear. We are still awaiting a bone marrow biopsy. 2. Neutropenic fever. The patient continues to be febrile. He is currently on daptomycin and valacyclovir. 3. Acute kidney injury due to acute tubular necrosis. Patient was improving but it looks like last night he has been hypotensive and since then his urine output has remarkably reduced. 4. Bronchospasms likely due to underlying pneumonia versus pulmonary edema. Patient bronchospasm have improved however he still has mild labored breathing. I think some of the fluid is going in his lungs. 5. Sepsis. Etiology is unclear. Patient continues to be hypotensive even after couple days of IV antibiotics. Antiviral was added yesterday. Patient was initially placed on antifungal but this was discontinued by ID, we are waiting for the evaluation today to make other adjustments. 6. Transaminitis. Etiology is unclear. I think it is part of the whole initial syndrome, it got worsened a little bit overnight I think but that is due to shock liver. Will keep eye on that. 7. Abdominal pain. Unsure if is due to the splenomegaly but patient is getting decompensated. I will go ahead and do a CT of the abdomen and pelvis to make sure there is no any collection that needs to be addressed in the face that the patient seems to be decompensating. So in general Mr. Benoit seems a little sicker today than yesterday. I had a conversation with Dr. Perez early this morning and he seems to have the understanding that the bone marrow biopsy is just necrosis which we not sure what caused this necrosis. Patient clinically is sicker. He is on antibiotics, we added antiviral yesterday, we are pending ID to evaluate him to make any other changes. Patient was given a dose of antifungal on initial early on during the week but this was discontinued by ID. So far blood cultures and urine cultures, urine have all been negative. Patient is now having significant abdominal pain. I am going to scan the abdomen and pelvis to make sure there is no any underlying pathology that needs to be addressed urgently. Will also do cortisol level since patient continues to be persistently hypotensive. Will give him a bolus of 1000 mL of normal saline. Will pay very close attention to his fluids fluid and hemodynamic status over the course of the of the ensuing hours. Will also give the patient 2 units of PRBC transfusion. I had a lengthy conversation with the and she wants the kids to come in today for a meeting and we will go from there. cc: Twin Brian MD
[2016-11-02] MEDS ORDERED: LEVOPHED 8 MG in D5 1/2 NS 250 ML IV SCH (17:00)
--- NOTE | 2016-11-02 17:41 | Diag Imaging Result Document ---
PROCEDURE NAME: THORAX/ABDOMEN/PELVIS W/O CONT - 11/02/2016 CT CHEST, ABDOMEN AND PELVIS WITHOUT CONTRAST: FINDINGS: The chest is compared to 10/28/2016. There is trace pleural fluid. The heart remains mildly prominent. No thoracic aortic aneurysm. There are calcified mediastinal lymph nodes. Interstitial markings are fairly similar to that of the prior exam. No consolidation. No bronchiectasis. IMPRESSION: There has been no significant change in the appearance of the chest compared to study performed [address] ABDOMEN AND PELVIS WITHOUT ORAL OR INTRAVENOUS CONTRAST: FINDINGS: There is fatty infiltration of the liver and splenomegaly similar to the prior study. The gallbladder is contracted. No change or definite abnormality in the pancreas or adrenal glands. There are hypodense renal lesions believed to be cysts. No renal stones. No hydronephrosis. No aortic aneurysm. Moderate atherosclerosis. No bowel obstruction. A Rangel catheter has the urinary bladder decompressed on the current exam. There are inflammatory changes in the pelvis on the current exam which have developed since the prior study. No abscess. No free air. Prominent lymph nodes in the pelvis are unchanged. IMPRESSION: Interval development of inflammatory changes within the pelvis, but without a well defined abscess or free air. No other definite interval change. A preliminary report was given at 4:31 PM. MTDD
[2016-11-02 17:48] LABS: CALCIUM 7.2 mg/dL (8.8-10.2); POTASSIUM 3.3 mmol/L (3.5-5.1)
--- NOTE | 2016-11-02 19:35 | PROGRESS NOTE ---
DATE: 11/02/2016 I spoke extensively with his son and daughter, [id number], and the this afternoon for over 30 minutes. We went over all of his lab work, all of his imaging studies, and his clinical picture which does not look that great. They all consented to the idea that if it is possible, transfer him to [place]. I came up and called the Transfer Center in [place] through the hospital band scroll saw operator. I was able to speak with Dr. Graf the MICU faculty on-call today. However, the MICU is on diversion and they will not be able to take Mr. Benoit at this point in time. She recommended calling back tomorrow to see if there are any openings and then they might be able to take him. cc: Twin Brian MD
[2016-11-02] MEDS: DESYREL PO SCH (20:09)
[2016-11-02] MEDS: TYLENOL PR PRN (20:49)
--- NOTE | 2016-11-02 22:49 | PROGRESS NOTE ---
DATE: 11/02/2016 CONCLUSION: The patient has a neutropenic fever. He also has gone into complete renal failure, and today he developed a marked abnormal mental status. MEDICATIONS: The patient has been on for 4 days meropenem and daptomycin, and Valtrex was started 2 days ago. PHYSICAL EXAMINATION: Vital Signs: Temperature is 100.9 degrees, pulse 117, respirations 25, blood pressure 100/56. General: This is an ill-appearing middle-aged male. He is in no acute distress. In general, he is twitching, with tonic-colonic movements. He does not respond to verbal stimuli. Lungs: Clear to auscultation. Cardiovascular: Regular heart rate. Abdomen: Soft and nontender. LABORATORY STUDIES AND X-RAYS: CT scan of the chest showed no consolidation. CT scan of the abdomen showed a fatty liver. CT scan of the pelvis showed pelvic inflammation, but no abscess. His blood work shows a creatinine of 1.3, GFR of 6.9. Lab values: CBC shows a white count of 1300, hemoglobin 6.9, and platelet count 47,000. Blood gases show a pH of 7.35, a PO2 of 63, and a pCO2 of 39. Creatinine is 4.0. GFR is 16. AST is elevated at 315. The alkaline phosphatase is elevated at 321. Stool culture for C. difficile toxin is negative. Blood and urine cultures are negative. ASSESSMENT AND PLAN: The patient has multi-system failure, and I am not sure what exactly is wrong with the patient. My plan is to continue with his antibiotics. I put a consult in for Dr. Bentley tomorrow to evaluate the patient's altered mental status. The patient's comorbidities include cigarette smoking, chronic low back pain, and prior back surgeries. cc: Michael Ingram MD
[2016-11-03 00:39] LABS: URINE SOURCE CATH
[2016-11-03 00:43] LABS: BILIRUBIN URINE NEGATIVE (NEGATIVE); BLOOD URINE LARGE (NEGATIVE); COLOR YELLOW; GLUCOSE URINE TRACE mg/dL (NEGATIVE); LEUKOCYTES URINE NEGATIVE (NEGATIVE); NITRITE URINE NEGATIVE (NEGATIVE); PH URINE 5.5; PROTEIN URINE 200 mg/dL (NEGATIVE); TURBIDITY URINE TURBID (CLEAR); UROBILINOGEN URINE 2 mg/dL (NORMAL)
[2016-11-03 00:44] LABS: URINE MICRO REVIEW NEEDED? YES
[2016-11-03 00:53] LABS: UR EPITHELIAL CELLS <10 /HPF (<10); URINE BACTERIA NEGATIVE /HPF; URINE WBC TNTC /HPF (<10)
[2016-11-03 01:08] LABS: URINE CASTS NONE SEEN; URINE CRYSTALS NONE SEEN; URINE SMALL ROUND CELLS NONE SEEN
[2016-11-03 01:21] LABS: UR CREAT RANDOM 153.9 mg/dL (14-26); UR PROT RANDOM 238.4 mg/dL
[2016-11-03] MEDS: MERREM 1 GM in NS 50 ML IV SCH ×2 (04:03→11:26)
[2016-11-03] MEDS: TYLENOL PR PRN (04:46)
[2016-11-03 07:44] LABS: ALBUMIN 1.7 g/dL (3.5-5.0); CALCIUM 6.9 mg/dL (8.8-10.2); HEMATOCRIT 25.3 % (42.0-52.0); HEMOGLOBIN 8.3 g/dL (14.0-18.0); LYMPH# 0.14 X1000 (1.2-3.4); LYMPH% 11.7 % (20.5-51.1); MANUAL DIFF NEEDED? YES; MCH 28.3 PG (27-31); MCHC 32.8 g/dL (33-37); MCV 86.3 FL (81-99); MONO# 0.13 X1000 (0.11-0.59); MONO% 10.8 % (1.7-9.3); MPV 12.4 FL (7.4-10.4); NEUT% 77.5 % (42.2-75.2); PLT 42 X1000 (130-400); POTASSIUM 3.6 mmol/L (3.5-5.1); RBC 2.93 XMIL (4.7-6.1); TOTAL BILIRUBIN 1.84 mg/dL (0.20-1.00); TOTAL PROTEIN 4.3 g/dL (6.3-8.3)
[2016-11-03 07:54] LABS: BANDS 4 % (0-1); LYMPHS 12 % (21-51)
[2016-11-03] MEDS: ADVAIR 250/50 DISKUS INH SCH (07:58)
[2016-11-03] MEDS: GRANIX SUBQ SCH (09:26)
--- NOTE | 2016-11-03 09:29 | CONSULTATION ---
DATE OF CONSULTATION: 11/03/2016 Mr. benoit is 56 years old and he has altered mental status associated with fever. He was admitted with reported sudden onset of mental changes associated with fever and chills. There was evidence of pneumonia. Admission date was 10/23/2023. His lab work has shown sodium climbing from 126 to 134. BUN was around 10 initially, up to 65 now. Urine drug screen was all negative. Noncontrast CT of the head 10/21/2016 was reported unremarkable. He had temperature of 103.2 degrees 2 days ago and has continued febrile with 100.9 at midnight and 101.4 early this morning. Systolic blood pressures have ranged from 80s to 130s. Mr. Benoit is awake and alert. He was attentive but disoriented and not able to provide valid personal history. He told me that he is certain he takes all of his medicines correctly at home, but he could not name any of those medicines or tell me the doses or the reasons that he takes medicines. His past history is reported to include back pain treated with gabapentin, baclofen, ibuprofen. Other medicines are omeprazole and trazodone. There is nothing on the admission medicine list that likely would be associated with encephalopathy, either in withdrawal or with intoxication. Since admission, he has had antibiotics and medicines to improve breathing. EXAM: Speech is significantly dysarthric, difficult to understand. He had trouble maintaining his train of thought. He did remain alert. He has full lateral eye movement with passive head turning. Corneal reflexes are symmetric. Pupils react to light. Facial motility is symmetric. Tongue is midline. He can hear. Shoulder shrug is equal. He was not attentive to vigorous testing of individual muscle groups in the limbs but he did demonstrate voluntary movement of all limbs. Tone is equal in the right and left limbs. Plantar response is silent bilaterally. Reflexes are 1+ at the wrists and ankles bilaterally. He did well on [id number] testing. He has prominent asterixis. There is no meningismus. IMPRESSION: Global encephalopathy, uncertain etiology. This is likely a multifactorial problem. Presentation with fever and reported altered mental status is worrisome. He does not appear clinically sick enough to have a bacterial meningitis, but he has leukopenia and he has had some antibiotics and could have partially treated meningitis or more likely nonbacterial infection. His mental status problems may be purely metabolic but, by report, he had some changes mentally before his BUN climbed to this level. I do not think we have to do anything urgently. I will check with Dr. Ingram about possibility of LP. Negative CT initially is reassuring. I do not see clinical evidence of increased intracranial pressure or mass. I do not think we will have to repeat imaging prior to LP. His clinical appearance does not look like subclinical seizure. We might consider EEG later. Thanks for asking me to see Mr. Benoit. cc: MD BENJAMIN Villa III
--- NOTE | 2016-11-03 09:52 | PROGRESS NOTE ---
DATE: 11/03/2016 Lumbar puncture was done at the L4 space with crystal clear fluid obtained and sent to the lab. Opening pressure was 48 cm of CSF. Closing pressure was 18 cm. He tolerated the LP well. There was no immediate evidence of bleeding problems. Further plans will depend on the CSF report. reports history of seizures. and daughter report approximately 5 seizures occurring over 10 years, last about a year ago, attributed to medication effects. At least some of these had been related to clonazepam and/or carisoprodol withdrawal. He has been off of those medicines in the last year and has not had any seizure or seizure like episode during that time. I will add EEG for completeness but I do not suspect seizure responsible for any of his recent mental change. Thanks for allowing me to follow Mr. Benoit. cc: Virginia Bentley III, MD
[2016-11-03] MEDS: MYCOSTATIN SUSP PO SCH ×3 (10:10→17:04)
[2016-11-03] MEDS: VALTREX PO SCH (10:11)
[2016-11-03 10:25] LABS: DIFF NEEDED? NO
[2016-11-03 10:25] LABS: DIFF NEEDED? NO
[2016-11-03 11:12] LABS: GLUCOSE CSF 52 mg/dL (39-75)
[2016-11-03 11:52] LABS: APPEARANCE CLEAR
[2016-11-03 12:11] LABS: RBC BF 166 /cumm; WBC BF 1 /cumm
[2016-11-03 12:22] LABS: APPEARANCE CLEAR; RBC BF 0 /cumm; WBC BF 0 /cumm
--- NOTE | 2016-11-03 14:15 | PROGRESS NOTE ---
DATE: 11/03/2016 TIME SEEN: 929 SUBJECTIVE: Patient resting in bed. He is moaning. He underwent a lumbar puncture this morning. OBJECTIVE: Vital Signs: Temperature 101.4 degrees, pulse 119, respiratory rate 29, blood pressure 135/79. Intake 2.9 L. Output 240 mL. General: This is a middle- aged gentleman resting in bed. His mentation is significantly declined from previous. HEENT: Normocephalic, atraumatic. Oral mucosa moist. Neck: Supple, thick, trachea midline. Cardiovascular: Tachycardic. Regular. No murmur. Pulmonary: Equal excursion. He is moaning, unable to discern if he has any wheeze but he does have equal excursion. Abdomen: Obese , soft with hypoactive bowel sounds. : Rangel catheter. There is scant urine noted. Extremities: No clubbing or cyanosis. He has 1+ pretibial edema. Integument: Skin is hot, warm. LAB DATA: WBC of 1.2, hemoglobin 8.3, platelets of 42,000. Sodium 138, potassium 3.6, chloride 101, CO2 18, BUN 82, creatinine 4.9, calcium 6.9, phosphorus 5.6, total bilirubin 1.8, AST 364, ALT 58, alkaline phosphatase 298, albumin 1.7. ASSESSMENT AND PLAN: 1. Acute kidney injury/acute tubular necrosis. Yesterday his creatinine began rising and has continued to do so over the last 24 hours. He is now up to 4.9. During this time his urine output has declined significantly to the point that he is now oliguric. There is no clear indication for this. He did have an abdominal imaging that did not show any hydronephrosis from a renal standpoint. His fluid volume he is rapidly in positive territory and as such, we will discuss with the family going ahead and placing a vascular access today and initiating dialysis until his workup can determine the underlying cause. 2. Pancytopenia and neutropenic fever followed by primary again. He underwent a lumbar puncture today in an effort to further clarify causation of this illness. 3. Fluid volume. See above. 4. Electrolytes, acid-base balance. Will treat with dialysis. Dictated by MICHELLE Iqbal for Krystian Goetz MD Seen, data reviewed, discussed with Rasheed Arriaga on 11/03/16. I agree with the above assessment and plan of care. cc: Krystian Goetz MD [facility]
--- NOTE | 2016-11-03 16:56 | PROGRESS NOTE ---
DATE: 11/03/2016 SUBJECTIVE: Today, Mr. Benoit continues to be minimally confused. Per the nursing staff, there has not been any improvement and he continues having intermittent mild jerky movements. OBJECTIVE: Vital signs: Blood pressure is 102/75, pulse of 108, respirations 34, temperature 99.3 degrees. Of note patient had a temperature of 101.4 degrees at 0327 hours. The patient has a T-max of 102.3 degrees which was yesterday at 2000 hours. General: Mr. Benoit is a 56-year-old male. He was in bed. He did not seem to be in any major distress. HEENT: Mucosa is pink and moist. Anicteric. Acyanotic. Neck: Supple. Chest: Air entry is bilaterally reduced. There are bilateral posterior coarse crepitations. Cardiovascular: Tachycardic but no murmur. No rubs. Abdomen: Soft, distended. Mildly tender in both upper quadrants and lower. ACTUARY MANAGER: The patient is drowsy but easily arousable. He follows basic commands. He is able to recognize his but he does not know where he is and he cannot tell us the date but he knows his name, and he will move all his extremities equally. Extremities: About 1+ pedal edema. LABORATORY DATA: Hemoglobin is 8.3, platelet count is 42,000, bands 4%. Pathology report finally came and all it shows is extensive necrosis with focal areas of hemopoietic tissue. No fungal or acid-fast organisms identified. No diagnosis of malignancy identified. A CT scan of the abdomen, pelvis, chest was done yesterday which shows no significant changes in the chest or lower abdomen. Interval development of inflammatory changes within the within the pelvis but without a well-defined abscess or free air. ASSESSMENT: 1. Refractory pancytopenia. The etiology is unclear. Bone marrow biopsy shows extensive necrosis which we are not sure at this point what might have caused this extensive necrosis. We suspect it is from septic shock but we do not know for sure. 2. Neutropenic fever. The patient is currently on daptomycin, meropenem and valacyclovir. He is also getting Granix. However the numbers have not shown any significant improvement. 3. Acute kidney injury. Suspect ATN. Patient has a FENa this morning that was 2.2 which is consistent with ATN. Patient also does have does have some eosinophils seen on the urine smear yesterday which raises the concern of possible interstitial nephritis on top of the ATN. He is been evaluated for renal replacement therapy 4. Septic shock. We are still not sure where the source of the infection is. Blood culture, urine culture and stools have all been negative. The patient on current CT scan did show some inflammatory changes in the pelvis but nothing of abscess or free air. We will continue with the current antibiotics and follow up with further recommendations from ID. 5. Transaminitis. We think this is from ischemic liver disease. In general, Mr. Benoit is a 56-year-old male who has been in hospital for the past 12 days. His clinical course has been progressively getting worse. He continues to be febrile even in the face of big and strong antibiotics and antiviral. An LP was done today to make sure that some of his altered mentation is not due to ACTUARY MANAGER infection. So far the fluid analysis WBC is 1, RBC is 166, glucose is 52, total protein is 36. This is not consistent with any ACTUARY MANAGER infection. Because patient's clinical picture continues to deteriorate we have reached out to [facility] to see if we can transfer him there for higher level of care and, fortunately, I have been able to get in touch with Dr. Ling Hdez who is the attending physician in the MICU who has accepted the patient pending bed availability. Once there is a bed available we will transfer the patient to [place] today. cc: Twin Brian MD MTDD
--- NOTE | 2016-11-03 16:57 | Diag Imaging Result Document ---
PROCEDURE NAME: CHEST-PORTABLE - 11/03/2016 PORTABLE CHEST X-RAY: COMPARISON: 11/01/2016. FINDINGS: There is a new right central line with the catheter tip at the upper SVC. Stable right PICC line. Stable cardiomegaly and pulmonary vascular congestion. No pneumothorax. IMPRESSION: No complicating features.
[2016-11-03 17:05] VITALS: BP 99/60
--- NOTE | 2016-11-04 01:56 | OPERATIVE NOTE ---
PROCEDURE DATE: 11/03/2016 PREOPERATIVE DIAGNOSIS: Acute renal failure. POSTOPERATIVE DIAGNOSIS: Acute renal failure. PRINCIPAL PROCEDURE: Right subclavian Vas-Cath. SURGEON: Leyla Serra MD. ANESTHESIA: Local. ESTIMATED BLOOD LOSS: 20 mL. DRAINS: None. INDICATIONS: Mr. Wes Benoit is a 56-year-old white male who has acute renal failure, and will need hemodialysis. We were asked to place access. DESCRIPTION OF PROCEDURE: The patient was placed in the Trendelenburg position in ICU bed 9. His right neck, shoulder, and anterior chest were prepped and draped within a sterile field. We used local anesthetic. Initially, we tried a right IJ Vas-Cath using ultrasound guidance, but his internal jugular vein appeared to be small, and we could not access it despite using ultrasound. We then directed our attention to the right subclavian. I used an 18-gauge needle to access the right subclavian below the right clavicle. We placed a guidewire through this needle, into the right side of the heart. The needle was removed, and we placed sequential dilators over the guidewire into the superior vena cava. We then placed a Vas-Cath over the guidewire into the superior vena cava. All 3 ports were functioning and were flushed with saline. We secured the catheter to the skin with two 3-0 nylon stitches and a dressing. He tolerated the procedure well, with plans to get a postprocedure chest x-ray. cc: Leyla Serra MD
--- NOTE | 2016-11-04 03:15 | CONSULTATION ---
DATE OF CONSULTATION: 11/03/2016 HISTORY OF PRESENT ILLNESS: Mr. Wes Benoit is a 56-year-old white male, a patient of Dr. Jules Sheikh, who was admitted on 10/21/2016 with fever, chills, a chronic low-back pain, and possible pneumonia. During his hospitalization, it was discovered that he is pancytopenic. He has had a bone marrow that shows necrosis. He has developed acute renal failure, and we are asked to place access for hemodialysis. PAST MEDICAL HISTORY: Chronic back pain. PAST SURGICAL HISTORY: Back surgery. ALLERGIES: No known drug allergies. MEDICATIONS: Listed in the MAR. SOCIAL HISTORY: He used to smoke. His family was at the bedside. FAMILY HISTORY: Negative. REVIEW OF SYSTEMS: A 14-point review of systems was performed with the family, and was essentially negative, except for the history of present illness. PHYSICAL EXAMINATION: General: Mr. Benoit is confused. He is an overweight white male in our ICU. He is on nasal cannula O2. Heart: Has a regular rate. Lungs: Essentially clear. O2 saturation 100%. Abdomen: Soft, without tenderness. Rectal: Was not performed. He does have palpable femoral pulses. The feet are warm bilaterally. IMPRESSION: Acute renal failure requiring hemodialysis. PLAN: Placement of a Vas-Cath so that he can dialyze. We were asked to evaluate him per our milk tester, Dr. Goetz. cc: Leyla Serra MD
[2016-11-04 10:58] LABS: HERPES SIMPLEX AB SEE COMMENTS
--- NOTE | 2016-11-04 15:32 | DISCHARGE SUMMARY ---
ADMISSION DATE: 10/22/2016 DISCHARGE DATE: 11/03/2016 DISPOSITION: [facility]U at [place]. RECEIVING DOCTOR: Dr. Ling Hdez. CONSULTATION DURING THIS ADMISSION: 1. Hem/Onc was consulted. Patient was seen by Dr. Perez. 2. Infectious disease was consulted. Patient was seen by Dr. Ingram. 3. Neurology was consulted. Patient was seen by Dr. Bentley. INVESTIGATE PROCEDURES DONE: 1. Bone marrow biopsy was done on 10/28/2016, which shows extensive necrosis with focal areas of hematopoietic tissue. No fungal or acid-fast organisms, and no diagnostic malignancy was identified. 2. Flow cytometry was unremarkable. IMAGING STUDIES OF SIGNIFICANCE: 1. A CT scan of the abdomen and pelvis was done on 10/25/2015, which shows splenomegaly, fatty infiltration of the liver, renal cysts, moderate prominent atherosclerosis, mild prominent lymph nodes. 2. A CT scan of the chest was done on 10/28/2016 which shows stable. No changes from prior. 3. A repeat CT scan of the abdomen and pelvis was done. It showed interval development of inflammatory changes within the pelvis, but without a well-defined abscess or free air. ADMISSION DIAGNOSES: 1. Altered mental status. 2. Suspected sepsis. 3. Probable pneumonia. 4. Hyponatremia. DISCHARGE DIAGNOSES: At the time of discharge, diagnoses were as follows: 1. Refractory pancytopenia. Etiology is unclear. Bone marrow shows extensive necrosis. 2. Neutropenic fever. Patient continues to be febrile. He is currently on Neupogen for the past almost 10 days and there has not been any remarkable improvement. He is on daptomycin, meropenem for a week and valacyclovir for 3 days. 3. Acute kidney injury, suspected acute tubular necrosis. FeNa was 2.2 consistent with acute tubular necrosis. Urine also has some eosinophils on the smear, which raises the suspicion for possible interstitial nephritis. 4. Septic shock. Patient continues to be hypotensive. Cortisol level is adequate. Blood cultures and urine cultures have all been negative. Stool cultures have also been negative. We will continue with the antibiotics. 5. Transaminitis likely due to shock liver. 6. Multiorgan failure. 7. Altered mental status. Lumbar puncture was done this morning which is normal. WBC is only 1, RBC is 166, CSF glucose is 52 and CSF total protein is 36.1. DISCHARGE MEDICATIONS: At the time of discharge, patient was on the following medications: 1. Daptomycin 750 every 48 hours. 2. Xopenex inhalers p.r.n. 3. Meropenem 1 g q. 8 hourly. 4. Norepinephrine drip. 5. Nystatin for mouthwash. 6. Filgrastim (Granix) 48 mcg subcutaneous daily. 7. Valacyclovir 1000 mg b.i.d. PRESENTING COMPLAINT: Altered mental status. HISTORY OF PRESENTING COMPLAINT: Mr. Benoit is a 56-year-old male with a history of chronic back pain, who was brought into the emergency department after the saw him with fever, chills and some altered mentation. Initial chest x-ray on presentation in the ER did show some infiltrates suspicious for pneumonia. The patient was subsequently admitted for sepsis. HOSPITAL COURSE: The patient did not really improve during the hospital stay. She was immediately found to have neutropenic fever. Cultures were done. They all have been negative. Patient was started on IV antibiotics right from the beginning, and a bone marrow biopsy was subsequently requested by Hem/Onc. Patient has been seen by both Hem/Onc and ID. However, the bone marrow came back as having extensive necrosis and no identifiable malignant cells. Patient has over the past 48 hours clinically deteriorated. He is now having very minimum urine output, almost nonexistent, and he continues to have remarkable fever and chills. Nephrology was consulted and there was a plan to actually dialyze him. However because of his clinical deterioration and the fact that we really do not know what is driving this persistent and refractory pancytopenia and neutropenic fever, we think it will be necessary for him to go to a tertiary institution where he would have higher medical care. I did call Dr. Ling Hdez, who is the MICU faculty on-call today, and she has been graceful enough and willing to accept the patient and continue his care over there. We do appreciate her collaboration. TIME SPENT FOR DISCHARGE: 45 minutes. cc: MD BENJAMIN Oliveira
--- NOTE | 2016-11-04 19:31 | EEG REPORT ---
DATE: 11/03/2016 ELECTROENCEPHALOGRAM: [id number] done on 11/03/2016. COMMENT: This is a digitally recorded EEG on a 56-year-old patient done portably in the ICU with past history of seizure, recent global encephalopathy, question of seizure. FINDINGS: There is some movement and muscle contraction artifact which does not hinder interpretation. Background contains low amplitude polymorphic and rhythmic theta at 4-6 Hz across the hemispheres. There is some slowing into the delta range frontally. There was not sustained posterior dominant rhythm but some 8-10 Hz rhythm is present posteriorly intermittently. Photic stimulation did not significantly alter the record. No definite epileptiform discharge was identified. INTERPRETATION: Abnormal electroencephalogram because of generalized slowing. CORRELATION: This is indicative of a diffuse encephalopathy and is nonspecific. The absence of epileptiform discharges on a single EEG does not exclude a clinical diagnosis of seizures. cc: Virginia Bentley III, MD
== END 2016-11-03 18:53 | disposition short-term general hospital (02) ==
LOC: ED 23:19 → 4N 10-22 03:04 → SUATTDRO 10-22 03:04 → ICU 10-29 19:33
PROVIDERS: ATTEND Internal Medicine